=== PATIENT | male | born 1935 | race Caucasian/White ===

== ENCOUNTER 2021-06-09 18:03 | Inpatient (IN) | payer MEDICARE, SELFPAY ==
[2021-06-09] VITALS (15 sets, daily range): BP systolic 95–158; BP diastolic 45–66; PULSE 85–112; RESP 23–34; TEMP 37.4–38.4; O2SAT 94–99
--- NOTE | ~2021-06-09 | XR_ITS ---
XR chest 1V portable 06/09/2021 19:29 Indication: Shortness of breath Procedure: AP portable chest Comparison: Comparison to multiple prior studies sequentially, with oldest reviewed study dated 03/2011. Findings: Status post median sternotomy for CABG. Bibasilar airspace disease. No pleural effusion. No pneumothorax. No acute osseous abnormality. No pneumothorax. Impression: 1: Bibasilar airspace disease which may represent atelectasis or developing pneumonia. Reviewed, dictated and finalized at location A. Impression: 1: Bibasilar airspace disease which may represent atelectasis or developing pne umonia.
--- NOTE | ~2021-06-09 | XR_ITS ---
EXAMINATION: XR fl guide central line place EXAM DATE: 06/16/2021 14:41 INDICATION: Tunnel dialysis catheter placement. TECHNIQUE: Fluoroscopy used during XR fl guide central line place performed by Dr. Saurav Lopez MD. Radiologist was not present for the imaging or procedure. Total fluoroscopic time of 99 seconds . The DAP for this procedure was 0.54 mGym2. A total of 3 images sent to PACS from the exam. FINDINGS: Image demonstrates sternotomy wires, left-sided approach dialysis catheter, tip projecting over expected location of cavoatrial junction. Correlate with procedure note. IMPRESSION: Fluoroscopy used during dialysis catheter placement. Reviewed, dictated and finalized at location G.
--- NOTE | ~2021-06-09 | CT_ITS ---
EXAMINATION: CT abdomen pelvis wo con DATE: 06/09/2021 21:11 INDICATION: Abdomen pain. Vomiting. TECHNIQUE: Computed tomography (CT) of the abdomen and pelvis was performed without intravenous contr ast. The dose-length product was 579.15 mGy-cm. Automated exposure control and iterative reconstructi on technique were employed. COMPARISON: None. FINDINGS: Lung bases are unremarkable. Heart size is normal. There is extensive atherosclerosis of th e abdomen and pelvis. No aneurysm. Calcified granulomas of the liver and spleen. There are gallstones . The liver, spleen, adrenal glands and kidneys are unremarkable. There is a 3 cm cystic lesion of th e uncinate process of the pancreas. Nonobstructive bowel gas pattern. Bladder is moderately distended . Prostate gland is enlarged. No free air or free fluid. Moderate lumbar spondylosis. IMPRESSION: 1. 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 The differential diagnosis includes pseudocyst, intraductal papillary mucinous neoplasm (IPMN), mucinous cystic neoplasm (MCN), and the less common serous cystadenoma and neuroendocrine tumor. 2: Cholelithiasis. 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 Reviewed, dictated and finalized at location A. IMPRESSION: 1. 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 The different ial diagnosis includes pseudocyst, intraductal papillary mucinous neoplasm (IPM N), mucinous cystic neoplasm (MCN), and the less common serous cystadenoma and neuroendocrine tumor. 2: Cholelithiasis. 3: Extensive atherosclerosis with stenosis at the origin of the celiac axis, SM A and renal arteries.
--- NOTE | ~2021-06-09 | XR_ITS ---
XR chest port-a-cath/central DATE: 06/16/2021 15:32 INDICATION: Postoperative examination following tunneling placement of dialysis catheter TECHNIQUE: Portable AP chest on 06/16/2021 at 1531 hours COMPARISON: 06/15/2021 portable AP chest FINDINGS: Interval placement of left subclavian central venous line in superior vena cava, with tip n ear superior cavoatrial junction. No pneumothorax. There are bilateral lower lung zone infiltrates and/atelectasis, right greater than left, not signifi cantly changed since 06/15/2021. Heart size appears within normal range. Is aortic arch calcification. No hilar or mediastinal enlarge ment is evident. Diffuse osteopenia. IMPRESSION: Interval placement of left subclavian central venous line in superior vena cava near supe rior cavoatrial junction; no pneumothorax Reviewed, dictated and finalized at Location A. Reviewed, dictated and finalized at location B. IMPRESSION: Interval placement of left subclavian central venous line in superi or vena cava near superior cavoatrial junction; no pneumothorax
--- NOTE | ~2021-06-09 | US_ITS ---
EXAMINATION: US renal BI DATE: 06/13/2021 11:32 INDICATION: Acute renal insufficiency TECHNIQUE: Multiple ultrasound grayscale images of the kidneys were obtained. COMPARISON: None. FINDINGS: The right kidney measures 11.0 x 5.5 x 5.5 cm. The left kidney measures 1.7 x 6.1 x 5.1 cm. The kidne ys demonstrate normal echogenicity. 8 mm anechoic cyst in the left kidney. There is no hydronephrosis in either kidney. No stones identified. The bladder is decompressed around a Tamez catheter which l imits evaluation.. IMPRESSION: 1. 8 mm left renal cyst. Otherwise normal kidneys without hydronephrosis. Reviewed, dictated and finalized at location A.
--- NOTE | ~2021-06-09 | XR_ITS ---
EXAMINATION: XR chest 1V portable DATE: 06/15/2021 11:25 INDICATION: Congestive heart failure. TECHNIQUE: A single frontal view of the chest was obtained. COMPARISON: Chest single view 06/12/2021 FINDINGS: There is a small right pleural effusion. There are airspace opacities in the mid and lower lung zones. No pneumothorax. The heart size is normal. Median sternotomy wires and mediastinal surgic al clips are seen, likely from prior coronary artery bypass grafting. IMPRESSION: 1. Airspace opacities in the mid and lower lung zones with worsening on the left, consistent with ate lectasis versus pneumonia. 2. Stable small right pleural effusion. Reviewed, dictated and finalized at location A. IMPRESSION: 1. Airspace opacities in the mid and lower lung zones with worsening on the lef t, consistent with atelectasis versus pneumonia. 2. Stable small right pleural effusion.
--- NOTE | ~2021-06-09 | NM_ITS ---
EXAMINATION: NM hepatobiliary w pharm DATE: 06/13/2021 14:41 INDICATION: Nausea and vomiting. Cholelithiasis. COMPARISON: Ultrasound 06/10/2021 TECHNIQUE: 5.5 mCi Tc-99m mebrofenin (Choletec) was administered intravenously. Scintigraphic images of the abdomen were obtained for one hour. Then, 1.6 mcg sincalide (Kinevac) IV was administered, an d imaging was continued for 30 minutes. FINDINGS: There is normal clearance of radiotracer from the blood pool. There is homogeneous tracer u ptake by the liver. Activity progresses to the bowel and gallbladder. Gallbladder ejection fraction (GBEF) was 7%. Note that most patients with gallbladder dysfunction have GBEF < 35%, which overlaps w ith the broad normal range of 10-90%. IMPRESSION: 1. Low gallbladder ejection fraction, consistent with gallbladder dysfunction and/or chronic cholecy stitis. Reviewed, dictated and finalized at location A. IMPRESSION: 1. Low gallbladder ejection fraction, consistent with gallbladder dysfunction and/or chronic cholecystitis.
--- NOTE | ~2021-06-09 | XR_ITS ---
XR chest 1V portable DATE: 06/12/2021 13:11 INDICATION: Hypoxia TECHNIQUE: Portable AP chest on 06/12/2021 at 1311 hours COMPARISON: 06/19/2021 portable AP chest FINDINGS: There are increased bilateral mid and lower lung infiltrates and/atelectasis since 06/09/2021 , right greater than left. Small right pleural effusion is evident. There is interval prominence of the minor fissure which may indicate subpleural edema or fluid in the fissure. Heart size appears within normal range. Aortic arch calcification. Status post sternotomy/coronary artery bypass graft surgery. Diffuse osteopenia. IMPRESSION: Increased bilateral mid and lower lung infiltrate and/atelectasis, right greater than lef t, since 06/19/2021. Small right pleural effusion is suggested. Differential diagnosis includes pneumonia, pulmonary edema, atelectasis, aspiration. Reviewed, dictated and finalized at location B. IMPRESSION: Increased bilateral mid and lower lung infiltrate and/atelectasis, right greater than left, since 06/19/2021. Small right pleural effusion is suggested. Differential diagnosis includes pneumonia, pulmonary edema, atelectasis, aspira tion.
--- NOTE | ~2021-06-09 | US_ITS ---
EXAMINATION: US abdomen limited DATE: 06/10/2021 13:33 INDICATION: Cholelithiasis. TECHNIQUE: Multiple grayscale and Doppler ultrasound images of the abdomen were obtained. COMPARISON: CT abdomen and pelvis 06/19/2021 FINDINGS: The visualized portion of the body of the pancreas is normal. The liver is normal without f ocal lesion. No liver surface nodularity. There is normal flow in main portal vein. The gallbladder i s distended and contains gallstones. No gallbladder wall thickening or sonographic Lopez sign. The c ommon duct is normal and measures 3 mm. IMPRESSION: 1. Distended gallbladder with gallstones. No gallbladder wall thickening or sonographic Lopez sign t o suggest acute cholecystitis. Reviewed, dictated and finalized at location A. IMPRESSION: 1. Distended gallbladder with gallstones. No gallbladder wall thickening or son ographic Lopez sign to suggest acute cholecystitis.
[2021-06-09 18:15] LABS: Glucose Point of Care 149 mg/dl (65-105)
--- NOTE | 2021-06-09 18:36 | ECG_ITS ---
Measurements Intervals [place] Rate: 106 P: 39 MN: 206 QRS: -7 QRSD: 89 T: 71 QT: 314 QTc: 419 Interpretive Statements SINUS TACHYCARDIA POSSIBLE LEFT ATRIAL ENLARGEMENT CANNOT RULE OUT SEPTAL INFARCT, AGE INDETERMINATE CONSDIER INFERIOR INFARCT, AGE INDETERMINATE BORDERLINE ST-T WAVE ABNORMALITY- HIGH LATERAL LEADS BASELINE ARTIFACT- I, III, AVL, V1-V2, V4-V6 ABNORMAL ECG Electronically Signed On 06-09-2021 19:00:13 CDT by Toby Cantor D.O.
[2021-06-09 18:45] LABS: Basophils Percent Auto 0.1 % (0.2-1.2); Hematocrit 28.8 % (42.0-52.0); Hemoglobin 8.9 g/dL (14.0-18.0); Immature Granulocyte Absolute 0.14 K/mm3 (0.00-0.031); Lymphocytes Absolute Auto 0.17 K/mm3 (0.9-3.2); Lymphocytes Percent Auto 1.2 % (18.3-44.2); Mean Corpuscular HGB Conc 30.9 g/dl (32-36); Mean Corpuscular Hemoglobin 30.4 pg (26-34); Mean Corpuscular Volume 98.3 fl (80-100); Mean Platelet Volume 9.8 fl (7.4-10.4); Monocytes Absolute Auto 0.6 K/mm3 (0.1-0.6); Monocytes Percent Auto 3.8 % (2.6-8.5); Neutrophils Absolute Auto 13.7 K/mm3 (1.3-6.7); Neutrophils Percent Auto 93.9 % (45.5-73.1); Platelet Count Result 111 k/mm3 (150-375); Red Blood Count 2.93 M/mm3 (4.6-6.20); White Blood Count 14.6 K/mm3 (4.5-10.0)
[2021-06-09 18:48] LABS: Add Urine Microscopic? YES; Appearance Urine Clear (Clear); Bilirubin Urine Negative (Negative); Blood Urine Negative (Negative); Color Urine Straw (Yellow); Glucose Urine UA Negative (Negative); Ketones Urine Negative (Negative); Leukocyte Esterase Ur Negative LEU/UL (Negative); Nitrate Urine Negative (Negative); Protein Urine 2+ mg/dL (Negative); RBC Urine 0-2 /hpf (0-2); Specific Grav Ur 1.011 (1.001-1.035); Urobilinogen Urine Negative mg/dL (<2.0); WBC Urine 0-3 /hpf
[2021-06-09 18:55] LABS: Alanine Aminotransferase 18 U/L (4-50); Albumin Level 3.9 g/dL (3.5-5.1); Alkaline Phosphatase 52 U/L (38-126); Anion Gap 14 mmol/L (8-16); Aspartate Amino Transferase 18 U/L (17-59); Bilirubin,Total 0.4 mg/dL (0.2-1.3); Blood Urea Nitrogen 110 mg/dL (9-20); Calcium 9.1 mg/dL (8.4-10.2); Carbon Dioxide 17 mmol/L (22-30); Chloride 111 mmol/L (98-107); Estimated CRCL calculation 13 ml/min; Estimated Glomerular Filt Rate 16; Glucose 148 mg/dL (75-110); Lipase 175 U/L (23-300); Potassium 4.1 mmol/L (3.4-5.0); Sodium 142 mmol/L (137-145)
[2021-06-09 19:04] LABS: NT Pro B Type Natriuretic Pept 645 pg/mL (5-100)
--- NOTE | 2021-06-09 19:24 | ED.GENADULT ---
HPI - General Adult General Chief complaint: Shortness of Breath/Dyspnea Stated complaint: v/d Time Seen by Provider: 06/09/21 19:18 Source: RN notes reviewed History of Present Illness HPI narrative: Patient presents to emergency department from home for shortness of breath. Patient states symptoms began this morning. He notes shortness of breath with a cough this been nonproductive. He states associate with this has had numerous episodes of nausea and vomiting. States he did begin to have note a feeling of fever earlier this afternoon and had a fever upon presentation the ER states has had no Tylenol. States he has had both Covid vaccines receiving [place] vaccine with second dose in January he denies any chest pain abdominal pain diarrhea or any other symptoms Related Data Home Medications Medication Instructions Recorded Confirmed Glucosamine Chondroitin BID 06/09/21 Novolog Flexpen U-100 Insulin 06/09/21 Restasis 06/09/21 amlodipine 5 mg DAILY 06/09/21 apixaban [Eliquis] mg 06/09/21 aspirin 81 mg PO DAILY 06/09/21 atorvastatin 40 mg DAILY 06/09/21 bimatoprost [Lumigan] drp 06/09/21 carvedilol [Coreg] 25 mg BID 06/09/21 doxazosin 2 mg PO HS 06/09/21 furosemide 120 mg DAILY 06/09/21 insulin glargine [Lantus Solostar SUBCUT 06/09/21 U-100 Insulin] isosorbide mononitrate 30 mg PO DAILY 06/09/21 lisinopril 40 mg DAILY 06/09/21 krlhbgatowzb-nbzuzdti-bbgkiu tablet 06/09/21 [Centrum Silver] omega 0-ggs-chy-fish oil [Fish Oil] 1 cap PO TID 06/09/21 Allergies Allergy/AdvReac Type Severity Reaction Status Date / Time Sulfa (Sulfonamide Allergy Unknown Hives Verified 06/09/21 18:44 Antibiotics) Review of Systems Review of Systems: Narrative: Gen.: Reports fever Eyes: Denies eye pain or visual change ENT: Denies congestion Respiratory: Reports shortness of breath and cough CV: Denies chest pain GI: Reports nausea vomiting. Denies abdominal pain or diarrhea denies burning, urgency, frequency or hematuria Musculoskeletal: Denies back pain or muscle pain Neuro: Denies numbness, tingling, weakness or focal weakness Skin: Denies rash Except as documented, all other systems reviewed and negative [facility] Past Medical History Medical History (Updated 06/10/21 @ 01:22 by Alfonso Pozo DO) CHF (congestive heart failure) CKD (chronic kidney disease), stage IV Family History Family History (Updated 11/29/16 @ 14:24 by DOCTOR UNKNOWN) Father Family history of malignant neoplasm of bone Mother Family history of congestive heart failure Social History Social History Smoking status: Former smoker Second hand tobacco smoke exposure: No Smoking end date: 12/02/85 Alcohol intake: never Exam Narrative: Exam Narrative: APPEARANCE: Mild respiratory distress nontoxic, resting in bed EYES: EOMI HEENT: Normocephalic, atraumatic, OMM RESPIRATORY: Mild respiratory distress, wheezing throughout the bilateral lung solomon with decreased breath sounds in the bases CARDIOVASCULAR: Regular rate and rhythm without murmurs rubs or gallops. ABDOMINAL: Soft, nontender, nondistended, no rebound or guarding MUSCULOSKELETAl: Moves all extremities. No clubbing, cyanosis or edema. NEURO: Awake and alert. Following commands, speech normal, no focal deficits SKIN:: Warm, dry. No rashes lesions or abrasions PSYCHIATRIC: Normal affect/mood, Course Course Emergency Course: Patient states he is feeling much better at this time. States he has been taking his Eliquis as prescribed as well as a daily baby aspirin will give no further medication for elevated troponin at this time he has been taking his medications. 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 Burnett at [facility] Discussed with Dr. Flores after CT scan and he r
[2021-06-09 19:54] LABS: Lactic Acid Reflex 1.3 mmol/L (0.7-2.1)
[2021-06-09] MEDS: SODIUM CHLORIDE 0.9% IV 1,000 ML 999 ML IV CONT ×2 (19:54→22:10)
[2021-06-09 19:56] LABS: Alveolar/Arterial O2 Gradient 44.2 mmHg; Base Excess ABG -7.4 mEq/l (+/-2.0); Device ROOM AIR; Fractional Inspired Oxygen 21 %; HCO3 ABG 17.7 mEq/l (22.0-26.0); Oxygen Content ABG 13.1 %vol (16.0-22.0); Oxygen Saturation ABG 91.4 % (95.0-100.0); Oxyhemoglobin 91.1 % THb (90.0-100.0); PCO2 ABG 34.4 mmHg (35.0-45.0); PO2 ABG 64.3 mmHg (80.0-100.0); PO2 FiO2 Ratio Arterial Blood 3.06 %; Site Drawn RIGHT BRACHIAL; Total Hemoglobin 10.2 g/dL (12.0-18.0)
[2021-06-09] MEDS: ALBUTEROL SULFATE NEB 2.5 MG/0.5 ML INH 5 MG INHALATION (20:12)
[2021-06-09] MEDS: IPRATROPIUM BR 0.02% INH SOLN 0.5 MG/2.5 ML VIAL INHALATION (20:12)
[2021-06-09 20:13] LABS: NT Pro B Type Natriuretic Pept 845 pg/mL (5-100); Troponin I 0.149 ng/mL (0.000-0.034)
[2021-06-09 22:42] LABS: INR 1.4; Prothrombin Time 16.8 Seconds (11.1-14.7)
[2021-06-09 22:44] LABS: Partial Thromboplastin Time 30.6 SECONDS (22.3-36.8)
--- NOTE | 2021-06-09 23:16 | ECG_ITS ---
Measurements Intervals [place] Rate: 88 P: 11 TN: 200 QRS: -11 QRSD: 97 T: 31 QT: 345 QTc: 418 Interpretive Statements SINUS RHYTHM CANNOT RULE OUT SEPTAL INFARCT, AGE INDETERMINATE CONSIDER INFERIOR INFARCT, AGE INDETERMINATE BASELINE ARTIFACT- I, II, III, AVR, AVL, AVF, V3-V6 ABNORMAL ECG Electronically Signed On 06-10-2021 6:46:42 CDT by Toby Cantor D.O.
[2021-06-10] VITALS (27 sets, daily range): BP systolic 104–154; BP diastolic 49–82; PULSE 68–114; RESP 14–27; TEMP 36.3–37.7; O2SAT 93–100; BMI 27.1
--- NOTE | 2021-06-10 01:00 | ADMGEN ---
This patient, Nolan Bower, was admitted to IMU Room 231-01. Patient/family oriented to hospital policies and general routines including ID bracelet, bed and alarms, visiting hours, pain management, procedures, bathroom and other care routines, personal items, smoking policy, room service/diet, and visiting hours. Information on how to activate the Rapid Response Team has been discussed. Patient/Family are encouraged to report perceived risks to care and to ask questions if they do not understand what they are told or what they should do.
[2021-06-10] MEDS: ALBUTEROL SULFATE NEB 2.5 MG/0.5 ML INH 5 MG INHALATION ×4 (02:23→19:57)
[2021-06-10] MEDS: IPRATROPIUM BR 0.02% INH SOLN 0.5 MG/2.5 ML VIAL INHALATION ×4 (02:24→19:58)
[2021-06-10] MEDS: SODIUM CHLORIDE 0.9% IV 1,000 ML 100 ML IV CONT ×2 (02:34→09:58)
[2021-06-10 02:41] LABS: Troponin I 0.301 ng/mL (0.000-0.034)
[2021-06-10 05:08] LABS: Basophils Percent Auto 0.1 % (0.2-1.2); Hematocrit 28.1 % (42.0-52.0); Hemoglobin 8.9 g/dL (14.0-18.0); Immature Granulocyte Absolute 0.46 K/mm3 (0.00-0.031); Immature Granulocyte Percent A 2.7 % (0-0.5); Lymphocytes Absolute Auto 0.25 K/mm3 (0.9-3.2); Lymphocytes Percent Auto 1.5 % (18.3-44.2); Mean Corpuscular HGB Conc 31.7 g/dl (32-36); Mean Corpuscular Hemoglobin 30.9 pg (26-34); Mean Corpuscular Volume 97.6 fl (80-100); Mean Platelet Volume 9.8 fl (7.4-10.4); Monocytes Absolute Auto 0.5 K/mm3 (0.1-0.6); Monocytes Percent Auto 3.1 % (2.6-8.5); Neutrophils Absolute Auto 15.6 K/mm3 (1.3-6.7); Neutrophils Percent Auto 92.6 % (45.5-73.1); Platelet Count Result 105 k/mm3 (150-375); Red Blood Count 2.88 M/mm3 (4.6-6.20); Red Cell Distribution Width 13.1 % (11.5-14.5); White Blood Count 16.9 K/mm3 (4.5-10.0)
[2021-06-10 05:30] LABS: Alanine Aminotransferase 23 U/L (4-50); Albumin Level 3.5 g/dL (3.5-5.1); Alkaline Phosphatase 49 U/L (38-126); Anion Gap 12 mmol/L (8-16); Aspartate Amino Transferase 26 U/L (17-59); Bilirubin,Total 0.4 mg/dL (0.2-1.3); Blood Urea Nitrogen 101 mg/dL (9-20); Calcium 8.7 mg/dL (8.4-10.2); Carbon Dioxide 19 mmol/L (22-30); Chloride 114 mmol/L (98-107); Estimated CRCL calculation 14 ml/min; Estimated Glomerular Filt Rate 17; Glucose 126 mg/dL (75-110); Potassium 4.6 mmol/L (3.4-5.0); Sodium 145 mmol/L (137-145)
--- NOTE | 2021-06-10 09:57 | PM.IMHP ---
H&P: HPI History of Present Illness Date/Time: 06/10/21 09:57 Chief Complaint: Vomiting, fever Narrative: date of admission: 06/09/2021 date of service 17/09/2021 Nolan Bower is an 86-year-old male with a history of CHF, CKD, CAD, valvular disease, CVA, diabetes mellitus, hypertension, hyperlipidemia, and several other comorbidities who presented to the emergency department from home on 06/09/2021 due to complaints of vomiting. Yesterday morning, he had a breakfast consisting of eggs and sausage, and shortly thereafter began vomiting. He estimates at least 5 episodes of emesis and he was not able to keep down any foods or liquids. Later that evening, he became short of breath and still was not able to eat or drink, therefore he decided to seek emergency care. He was found to have a fever upon presentation but he is unsure if he has had any fevers at home. He felt that he was becoming weaker throughout the day without being able to eat. Upon presentation to the emergency department, he was febrile at 101.1?, he was tachycardic and tachypneic. he was not documented to have been hypoxic, however he is currently on 2 L supplemental O2. CBC reviewed with WBC elevated at 14.6, hemoglobin 8.9, hematocrit 20.1, platelets 111. CMP reviewed with elevated BUN and creatinine, normal total bili, AST, ALT, and ALP. Lipase 175. BNP 645. Lipase 1.3. Troponin 0.149. UA without concerns for infection. Influenza screen negative. CXR with bibasilar airspace disease and CT a/p with incidental finding of pancreatic cystic mass, cholelithiasis, and atherosclerosis of the celiac axis, SMA, and renal arteries. Upon my evaluation, he is feeling well and doesn't have many complaints. He denies shortness of breath, though he is tachypneic. He notes that he has been having more shallow breathing for 6 months to 1 year. He relates this to his valvular disease (cannot elaborate on this further) and he is established with cardiology at [place]. He does not wish to undergo valve repair. He has not had any further nausea or vomiting and tolerated clear liquids for breakfast this morning. He denies abdominal pain. He is being admitted to the hospitalist service for observation status. Supervising physician for this history and physical is Dr. Mary Ann Smith. Review of Systems Review of Systems: Narrative: All systems reviewed with pertinent positives and negatives as per HPI. Additionally, patient denies fevers or chills. He had not been checking his temperature at home. Denies cough. Does endorse orthopnea which has been ongoing for some time. Denies chest pain or palpitations. Endorses lower extremity edema and he does have bilateral lower extremities. He has wounds on both legs from vascular disease. He is established with a vascular surgeon, and again has opted for conservative management. He has been consistently taking his Eliquis and denies any issues with bleeding. No melena, hematochezia, hematuria. Denies dysuria. Prior to his episode of emesis, he had been in his usual state of health and eating well. He estimates he has lost approximately 10 lb over the course of the year. He reports occasional GERD. Does not notice abdominal pain related to meals. He reports poor vision and no longer drives. Also notes his hearing is poor but does not have hearing aids. He completed [employer] COVID vaccination series in January. He has not had COVID positive contacts and has not traveled. He indicates that he mostly stays at home. He has not had loss of smell. Notes diminished taste, but feels this has been ongoing for about a year. He is able to ambulate independently but feels weak currently. No dizziness/lightheadedness upon standing. No numbness/tingling in extremities. [facility] Past Medical History Medical History (Updated 06/10/21 @ 12:17 by Tanesha Graham PA-C) Arrhythmia Details unknown; s/p cardioversion years ago CAD (coronary artery disease) CHF (congestive h
[2021-06-10 10:25] LABS: Magnesium 1.6 mg/dL (1.6-2.3)
[2021-06-10 12:23] LABS: Glucose Point of Care 191 mg/dl (65-105)
--- NOTE | 2021-06-10 15:05 | PM.CNCAR ---
Assessment and Plan Assessment and plan (1) Non-STEMI (non-ST elevated myocardial infarction): Code(s): I21.4 - Non-ST elevation (NSTEMI) myocardial infarction Status: Acute Assessment and Plan: his elevated troponin represents non ST-elevation myocardial infarction. It is uncertain if this related to plaque rupture or secondary to supply demand mismatch demand ischemia in the setting of bacteremia, anemia and underlying CAD. Unfortunately at this point, no anticoagulation should be given because of his bloody stools. Will hold his apixaban for the time being. Continue low-dose aspirin 81 mg p.o. daily for now. Atorvastatin should be continued as well as his isosorbide, lisinopril, carvedilol. 2D echocardiogram Doppler will be ordered and reviewed. I have discussed with patient again about his code status and he emphasizes DNR status. Will pursue conservative management for now (2) Elevated troponin: Code(s): R77.8 - Other specified abnormalities of plasma proteins Status: Acute Assessment and Plan: as above (3) Paroxysmal atrial flutter: Code(s): I48.92 - Unspecified atrial flutter Status: Acute Assessment and Plan: status post cardioversion remotely. On anticoagulation previously. Hold Eliquis (4) (HFpEF) heart failure with preserved ejection fraction: Code(s): I50.30 - Unspecified diastolic (congestive) heart failure Status: Acute Assessment and Plan: history of CHF with preserved ejection fraction. I do think he is in some degree of volume overload at this point as he is quite dyspneic. Other concern though is that he is in acute on chronic renal failure. Will try to diurese him with 40 mg of IV furosemide x1 to see if this will help his respiratory status. 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 Patient is also bacteremic with fevers. Antibiotics to be started per hospitalist. workup pending. ? Ischemic bowel History of Present Illness History of Present Illness Consult date/time: 06/10/21 15:05 Requesting physician: Tanesha Graham PA-C Consult reason: Other ( elevated troponin, CAD) Reason For Visit: Fever of Unknown Origin,Elevated Troponin,Acute Re Narrative: date of service 06/10/2021 Reason for consultation positive troponin, CAD History: Patient is a 86-year-old man who follows with Dr. Ulloa at [place]. He has a remote history of CABG in 2004 as well as atrial flutter and heart failure with preserved ejection fraction. Echocardiogram 2020 did show some mild mitral and tricuspid regurgitation as well as some aortic valve sclerosis and calcification. He also has significant peripheral vascular disease including celiac arteries, lower extremities, carotids as well as claudication. He came to the hospital yesterday with symptoms of nausea and vomiting. He ate some eggs and sausage yesterday and soon thereafter became sick and started vomiting. He had several episodes of vomitus. He came to the emergency department is also febrile with a temperature of 101.1?. Troponins were drawn which were minimally elevated and have slowly and gradually risen to a level 3.3 at
[2021-06-10 15:31] LABS: Lactic Acid Reflex 2.6 mmol/L (0.7-2.1)
[2021-06-10] MEDS: guaiFENesin 12 HR 600 MG TABCR PO ×2 (15:34→21:34)
[2021-06-10] MEDS: FUROSEMIDE INJ 40 MG/4 ML VIAL IV PUSH (15:34)
[2021-06-10 16:38] LABS: Hematocrit 28.1 % (42.0-52.0); Hemoglobin 8.9 g/dL (14.0-18.0)
[2021-06-10 17:17] LABS: Glucose Point of Care 198 mg/dl (65-105)
--- NOTE | 2021-06-10 18:12 | PM.CNGS ---
Assessment and Plan Assessment and plan (1) Bright red blood per rectum: Code(s): K62.5 - Hemorrhage of anus and rectum Status: Acute Assessment and Plan: I have reviewed the CT. He has many risk factors for acute mesenteric ischemia, but he does not present in this fashion. He is not having any abdominal pain, and his blood in his stool was most like related to hemorrhoids or an upper GI bleed. He does appear dehydrated from the nausea and vomiting, and his BUN could also be elevated partially due to an upper GI bleed. I feel that fluid resuscitation would be more prudent in this case and then also consider GI evaluation for identifying source GI bleed. His bacteremia could be related to bowel or possible gallbladder source. If his white blood count is continuing to remain elevated, would consider HIDA scan to assess for acute cholecystitis. Given his multiple comorbidities he would not be a good surgical candidate. Consideration of percutaneous cholecystostomy tube if bacteremic sources deemed to be gallbladder in origin. If he is in need of urgent surgical intervention for ischemic bowel, he would have very high mortality risk associated with this. I will continue to follow along with the patient and reassess if he is having new symptoms of abdominal pain. (2) Chronic anticoagulation: Code(s): Z79.01 - [facility] (current) use of anticoagulants Status: Acute (3) Cholelithiasis: Code(s): K80.20 - Calculus of gallbladder without cholecystitis without obstruction Status: Acute (4) Sepsis: Code(s): A41.9 - Sepsis, unspecified organism Status: Acute (5) Non-STEMI (non-ST elevated myocardial infarction): Code(s): I21.4 - Non-ST elevation (NSTEMI) myocardial infarction Status: Acute History of Present Illness Consult details Consult date: 06/10/21 Reason for consult: other (Possible ischemic colitis) Requesting physician: Tanesha Graham PA-C Narrative: this is an 86-year-old man who I am asked to see for possible ischemic colitis. He presented to the emergency department yesterday with nausea and vomiting. He was also complaining of shortness of breath. He has multiple risk factors and comorbidities including history of CVA, coronary artery disease, CHF, and he is on long-term anticoagulation. He has not been complaining of abdominal pain. A CT of his abdomen and pelvis showed a pancreatic cystic mass, cholelithiasis, and severe atherosclerosis of celiac, SMA, and renal arteries. today he was noted to have a large bloody bowel movement. The patient does state that he has history of hemorrhoids, he has not noticed any blood mixed with stool previously. He denied any hematemesis with any of his nausea and vomiting. Review of Systems Review of Systems: All systems reviewed & are unremarkable except as noted in HPI and below Constitutional: Constitutional: Denies chills and Denies fever(s) Cardiovascular: Cardiovascular: Denies chest pain and Denies dyspnea Respiratory: Respiratory: Denies dyspnea Gastrointestinal: Gastrointestinal: Reports as per HPI [facility] Past Medical History Medical History (HFpEF) heart failure with preserved ejection fraction Arrhythmia Details unknown; s/p cardioversion years ago CAD (coronary artery disease) CHF (congestive heart failure) CKD (chronic kidney disease), stage IV Glaucoma History of CVA (cerebrovascular accident) Hyperlipidemia Hypertension Type 2 diabetes mellitus Valvular heart disease Surgical History Surgical History History of cataract surgery History of coronary artery bypass graft 2004 History of right knee surgery Family History Family History Father Family history of malignant neoplasm of bone Lung cancer Mother Family history
[2021-06-10 18:20] LABS: Reflex Lactic Acid Yes or No Add Lactic
[2021-06-10] MEDS: BRIMONIDINE TARTRATE 0.15% 5 ML OPHTH SOLN 1 DROP LEFT EYE (18:38)
[2021-06-10] MEDS: cilostazoL 100 MG TABLET PO (18:38)
[2021-06-10 20:05] LABS: Lactic Acid 1.8 mmol/L (0.7-2.1)
[2021-06-10 21:20] LABS: SARS-CoV-2 RNA PCR Negative
[2021-06-10] MEDS: carvediloL 25 MG TABLET PO (21:33)
[2021-06-10] MEDS: DOXAZOSIN MESYLATE 2 MG TABLET PO (21:34)
[2021-06-10] MEDS: cycloSPORINE 0.4 ML OPHTH SOLUTION 1 DROP EACH EYE (21:34)
[2021-06-10] MEDS: INSULIN GLARGINE (*BKC) 100 UNITS/ML 18 UNITS SUB-Q (21:38)
[2021-06-10 21:47] LABS: Glucose Point of Care 159 mg/dl (65-105)
[2021-06-11] VITALS (23 sets, daily range): BP systolic 90–130; BP diastolic 55–78; PULSE 86–118; RESP 17–28; TEMP 36.4–36.9; O2SAT 89–94
[2021-06-11] MEDS: SODIUM CHLORIDE 0.9% IV 1,000 ML 100 ML IV CONT (00:48)
[2021-06-11] MEDS: ACETAMINOPHEN 500 MG TABLET 1000 MG PO ×2 (01:50→11:23)
[2021-06-11] MEDS: ALBUTEROL SULFATE NEB 2.5 MG/0.5 ML INH 5 MG INHALATION ×4 (02:22→20:49)
[2021-06-11] MEDS: IPRATROPIUM BR 0.02% INH SOLN 0.5 MG/2.5 ML VIAL INHALATION ×4 (02:22→20:49)
[2021-06-11 05:19] LABS: Hematocrit 28.2 % (42.0-52.0); Hemoglobin 8.8 g/dL (14.0-18.0); Immature Platelet Fraction Pct 1.7 % (0.9-11.2); Mean Corpuscular HGB Conc 31.2 g/dl (32-36); Mean Corpuscular Hemoglobin 30.4 pg (26-34); Mean Corpuscular Volume 97.6 fl (80-100); Mean Platelet Volume 9.7 fl (7.4-10.4); Platelet Count Result 82 k/mm3 (150-375); Red Blood Count 2.89 M/mm3 (4.6-6.20); Red Cell Distribution Width 13.2 % (11.5-14.5); White Blood Count 12.6 K/mm3 (4.5-10.0)
[2021-06-11 05:43] LABS: Alanine Aminotransferase 50 U/L (4-50); Albumin Level 2.8 g/dL (3.5-5.1); Alkaline Phosphatase 61 U/L (38-126); Anion Gap 13 mmol/L (8-16); Aspartate Amino Transferase 54 U/L (17-59); Bilirubin,Total 0.5 mg/dL (0.2-1.3); Blood Urea Nitrogen 91 mg/dL (9-20); Calcium 8.7 mg/dL (8.4-10.2); Carbon Dioxide 16 mmol/L (22-30); Chloride 112 mmol/L (98-107); Estimated CRCL calculation 16 ml/min; Estimated Glomerular Filt Rate 19; Glucose 129 mg/dL (75-110); Potassium 3.9 mmol/L (3.4-5.0); Sodium 141 mmol/L (137-145)
[2021-06-11 05:51] LABS: Hemoglobin A1C 5.9 % (<5.7)
[2021-06-11 06:54] LABS: Band Neutrophils Percent 10 % (0-6); Lymphocytes Absolute Manual 0.75 K/mm3 (1.1-4.5); Neutrophils Absolute Manual 11.84 K/mm3 (1.3-6.7); Neutrophils Percent Manual 84 % (46-73); Platelet Estimate Decreased (Adequate); Total Cells Counted 100
[2021-06-11 06:55] LABS: Burr Cells 1+ (NORMAL); Large Platelets Present; Ovalocytes 1+ (NORMAL)
[2021-06-11 06:59] LABS: Folic Acid > 20.0 ng/mL (2.76->20)
[2021-06-11] MEDS: guaiFENesin 12 HR 600 MG TABCR PO ×2 (08:53→21:57)
[2021-06-11] MEDS: ISOSORBIDE MONONITRATE 30 MG TAB.ER.24H PO (08:53)
[2021-06-11] MEDS: cilostazoL 100 MG TABLET PO ×2 (08:53→17:07)
[2021-06-11] MEDS: amLODIPine BESYLATE 5 MG TABLET PO (08:54)
[2021-06-11] MEDS: ATORVASTATIN 40 MG TABLET PO (08:54)
[2021-06-11] MEDS: ASPIRIN 81 MG CHEWABLE TABLET PO (08:54)
[2021-06-11] MEDS: FINASTERIDE 5 MG TABLET PO (08:55)
[2021-06-11] MEDS: carvediloL 25 MG TABLET PO ×2 (08:56→21:56)
[2021-06-11] MEDS: BRIMONIDINE TARTRATE 0.15% 5 ML OPHTH SOLN 1 DROP LEFT EYE ×2 (08:56→17:05)
[2021-06-11] MEDS: cycloSPORINE 0.4 ML OPHTH SOLUTION 1 DROP EACH EYE ×2 (08:57→21:56)
--- NOTE | 2021-06-11 09:25 | P.PNIM_ITS ---
Progress Note: A&P Assessment and Plan (1) Septicemia: Code(s): A41.9 - Sepsis, unspecified organism Status: Acute Assessment and Plan: Septic upon presentation with leukocytosis, fever, tachypnea, and tachycardia. Source of infection unclear at this time. * Preliminary blood cultures with growth of Gram-negative bacilli * Continue Zosyn 2.25 g q8 for renal dosing DAY 2 * U/S GB w/ GALLSTONES BUT NO SIGNS OF ACUTE CHOLECYSTITIS * Source of GNR remains unclear, but GI tract remains likely * 06/11 clear liquids and advance (2) Elevated troponin: Code(s): R77.8 - Other specified abnormalities of plasma proteins Status: Acute Assessment and Plan: troponin elevated upon presentation at 0.149 with continued increase up to 3.35. . * NSTEMI * On ASA 81mg, off anticoagulation * Echo pending (3) Cholelithiasis: Code(s): K80.20 - Calculus of gallbladder without cholecystitis without obstruction Status: Acute Assessment and Plan: Evident on CT scan with associated nausea and vomiting. total bili LFTs within normal limits. * RUQ U/s with gallstones but no sign of acute cholecystitis * HIDA for 06/12 (4) Acute on chronic kidney failure: Code(s): N17.9 - Acute kidney failure, unspecified; N18.9 - Chronic kidney disease, unspecified Status: Acute Assessment and Plan: last labs were January 2020 with creatinine of 2.09. Creatinine was 3.7 at presentation. Unclear if this is acute change or progression of his severe CKD. He is established with research aide Dr. Burnett at [facility] but has not been since prior to the pandemic. * Creatinine 3.1 06/11 * Decrease IVF (5) Type 2 diabetes mellitus, controlled, with renal complications: Code(s): E11.29 - Type 2 diabetes mellitus with other diabetic kidney complication Status: Acute Assessment and Plan: reports last A1c was 6.2. 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 + BC w/ GNR. Atherosclerosis on abd CT. Neg lactate. Neg U/s abd. Dark blood in stool 06/10. 06/11: Achy. Denied nausea. Denied further bleeding. Chronic wheezing and sob. Denied chest pain. Chronic left side weakness and left hand/wrist discomfort since stroke. Review of Systems Review of Systems: All systems reviewed & are unremarkable except as noted in HPI and below Exam Narrative: Exam Narrative: Neuro: awake, alert and oriented x4, speech clear, 4/5 LUE STRENGTH VS RIGHT HEENMT: normocephalic, atraumatic, EOMI, sclerae anicteric, moist oral mucosa, tongue has dark film Neck: supple, no lymphadenopathy Respiratory: BILATERAL LL EXPIRATORY WHEEZES. He is able to speak in full sentences. Cardio: regular rate, regular rhythm with S1-S2 Abdomen: nondis
--- NOTE | 2021-06-11 09:25 | PM.IMPN ---
Progress Note: A&P Assessment and Plan (1) Septicemia: Code(s): A41.9 - Sepsis, unspecified organism Status: Acute Assessment and Plan: Septic upon presentation with leukocytosis, fever, tachypnea, and tachycardia. Source of infection unclear at this time. Preliminary blood cultures with growth of Gram-negative bacilli Continue Zosyn 2.25 g q8 for renal dosing DAY 2 U/S GB w/ GALLSTONES BUT NO SIGNS OF ACUTE CHOLECYSTITIS Source of GNR remains unclear, but GI tract remains likely 06/11 clear liquids and advance (2) Elevated troponin: Code(s): R77.8 - Other specified abnormalities of plasma proteins Status: Acute Assessment and Plan: troponin elevated upon presentation at 0.149 with continued increase up to 3.35. . NSTEMI On ASA 81mg, off anticoagulation Echo pending (3) Cholelithiasis: Code(s): K80.20 - Calculus of gallbladder without cholecystitis without obstruction Status: Acute Assessment and Plan: Evident on CT scan with associated nausea and vomiting. total bili LFTs within normal limits. RUQ U/s with gallstones but no sign of acute cholecystitis HIDA for 06/12 (4) Acute on chronic kidney failure: Code(s): N17.9 - Acute kidney failure, unspecified; N18.9 - Chronic kidney disease, unspecified Status: Acute Assessment and Plan: last labs were January 2020 with creatinine of 2.09. Creatinine was 3.7 at presentation. Unclear if this is acute change or progression of his severe CKD. He is established with refresh technician Dr. Burnett at [facility] but has not been since prior to the pandemic. Creatinine 3.1 06/11 Decrease IVF (5) Type 2 diabetes mellitus, controlled, with renal complications: Code(s): E11.29 - Type 2 diabetes mellitus with other diabetic kidney complication Status: Acute Assessment and Plan: reports last A1c was 6.2. 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 + BC w/ GNR. Atherosclerosis on abd CT. Neg lactate. Neg U/s abd. Dark blood in stool 06/10. 06/11: Achy. Denied nausea. Denied further bleeding. Chronic wheezing and sob. Denied chest pain. Chronic left side weakness and left hand/wrist discomfort since stroke. Review of Systems Review of Systems: All systems reviewed & are unremarkable except as noted in HPI and below Exam Narrative: Exam Narrative: Neuro: awake, alert and oriented x4, speech clear, 4/5 LUE STRENGTH VS RIGHT HEENMT: normocephalic, atraumatic, EOMI, sclerae anicteric, moist oral mucosa, tongue has dark film Neck: supple, no lymphadenopathy Respiratory: BILATERAL LL EXPIRATORY WHEEZES. He is able to speak in full sentences. Cardio: regular rate, regular rhythm with S1-S2 Abdomen: nondistended, normoactive bowel sounds, soft, nontender to palpation, no rigidity or guarding Extremities: no edema, erythema, cyanosis, clubbing, or tenderness to palpation, DP pulses 2+ bilaterally Skin: no rashes or lesions, warm and dry Psych: appropriate mood and affect Objective Data Vital Signs Vital Signs: Vital Signs - 24 hr 06/10/21 10:00 06/10/21 11:46 06/10/21 12:00 Temperature 100 F H Pulse Rate 102 H 103 H 105 H Respiratory Rate 20 Blood Pressure 115/61 Pulse Oximetry 98 96 07
[2021-06-11 09:26] LABS: Glucose Point of Care 125 mg/dl (65-105)
--- NOTE | 2021-06-11 10:40 | PM.PNCARD ---
Progress Note: A&P Assessment and Plan (1) Non-STEMI (non-ST elevated myocardial infarction): Code(s): I21.4 - Non-ST elevation (NSTEMI) myocardial infarction Status: Acute Assessment and Plan: his elevated troponin represents non ST-elevation myocardial infarction. It is uncertain if this related to plaque rupture or secondary to supply demand mismatch demand ischemia in the setting of bacteremia, anemia and underlying CAD. Unfortunately at this point, no anticoagulation should be given because of his bloody stools. Will hold his apixaban for the time being. Continue low-dose aspirin 81 mg p.o. daily for now. Atorvastatin should be continued as well as his isosorbide, lisinopril, carvedilol. echo pending. Continue conservative therapy. (2) Elevated troponin: Code(s): R77.8 - Other specified abnormalities of plasma proteins Status: Acute Assessment and Plan: as above (3) Paroxysmal atrial flutter: Code(s): I48.92 - Unspecified atrial flutter Status: Acute Assessment and Plan: status post cardioversion remotely. On anticoagulation previously. Hold Eliquis (4) (HFpEF) heart failure with preserved ejection fraction: Code(s): I50.30 - Unspecified diastolic (congestive) heart failure Status: Acute Assessment and Plan: history of CHF with preserved ejection fraction. I do think he is in some degree of volume overload at this point as he is quite dyspneic. additional dose furosemide 40 mg IV times 1 today (5) Hypertension associated with diabetes: Code(s): E11.59 - Type 2 diabetes mellitus with other circulatory complications; I15.2 - Hypertension secondary to endocrine disorders Status: Acute Assessment and Plan: above goal (6) CKD (chronic kidney disease), stage IV: Code(s): N18.4 - Chronic kidney disease, stage 4 (severe) Status: Acute Assessment and Plan: renal function improving (7) Chronic anticoagulation: Code(s): Z79.01 - [facility] (current) use of anticoagulants Status: Acute Assessment and Plan: Will continue to hold anticoagulation for now. Will need this resumed at some point as an inpatient pending GI workup and if there is a need for surgery (8) Bright red blood per rectum: Code(s): K62.5 - Hemorrhage of anus and rectum Status: Acute Assessment and Plan: workup per hospitalist. Patient is also bacteremic with fevers. Antibiotics to be started per hospitalist. Subjective Date/time seen: 06/11/21 10:40 Interval history: Admitted 06/10 with n/v. + BC w/ GNR. Atherosclerosis on abd CT. Neg lactate. Neg U/s abd. Dark blood in stool 06/10. date of service 06/11/2021: He states that he feels better today. Breathing easier after the IV Lasix a give yesterday. No nausea, vomiting. No more bright red blood per rectum. No chest pain or palpitations. Review of Systems Review of Systems: All systems reviewed & are unremarkable except as noted in HPI and below Constitutional: Constitutional: Denies body ache(s), Denies chills, Denies fatigue and Denies headache(s) Eyes: Eyes: Denies blurry vision ENT: Reports Normal hearing present, Denies headache(s) and Denies neck pain Cardiovascular: Cardiovascular: Denies chest pain and Reports dyspnea Respiratory: Respiratory: Reports dyspnea Gastrointestinal: Gastrointestinal: Denies abdominal pain, Reports hematochezia, Reports nausea and Reports vomiting Genitourinary: Genitourinary: Denies dysuria Musculoskeletal: Musculoskeletal: Denies back pain and Denies neck pain Integumentary/Breasts: Skin/Breast: Denies dry skin and Denies unusual bruising Neurologic: Reports Normal hearing present, Denies confusion and Denies headache(s) Psychiatric: Psychiatric: Denies anxiety and Denies confusion Endocrine: Endocrine: Denies fatigue Hematologic/Lymphatic: Hematologic/Lymphatic: Denies easy blee
[2021-06-11 10:44] LABS: Iron < 10 ug/dL (49-181)
[2021-06-11 10:45] LABS: Percent Iron Saturation < 5 % (20-50)
[2021-06-11] MEDS: SODIUM CHLORIDE 0.9% IV 1,000 ML 70 ML IV CONT (11:21)
[2021-06-11] MEDS: FUROSEMIDE INJ 40 MG/4 ML VIAL IV PUSH (11:21)
[2021-06-11 12:04] LABS: Glucose Point of Care 210 mg/dl (65-105)
--- NOTE | 2021-06-11 12:53 | PM.PNGS ---
Progress Note: A&P Assessment and Plan (1) Sepsis: Code(s): A41.9 - Sepsis, unspecified organism Status: Acute Assessment and Plan: Bacteremic source could be GI in origin. Would favor gallbladder over bowel given his symptoms. N/V did start after eating eggs and pork sausage. Clinically he is improving and he remains a high risk for surgical intervention. If he has any recurrent symptoms, then I would recommend a HIDA scan for further evaluation and then could consider percutaneous cholecystostomy tube if he had evidence of acute cholecystitis. Since he is otherwise doing well, will follow as needed. (2) Abnormal finding on CT scan: Code(s): R93.89 - Abnormal findings on diagnostic imaging of other specified body structures Status: Acute (3) Cholelithiasis: Code(s): K80.20 - Calculus of gallbladder without cholecystitis without obstruction Status: Acute (4) Acute on chronic kidney failure: Code(s): N17.9 - Acute kidney failure, unspecified; N18.9 - Chronic kidney disease, unspecified Status: Acute (5) Non-STEMI (non-ST elevated myocardial infarction): Code(s): I21.4 - Non-ST elevation (NSTEMI) myocardial infarction Status: Acute (6) Bright red blood per rectum: Code(s): K62.5 - Hemorrhage of anus and rectum Status: Acute Subjective Subjective Date/Time Seen: 06/11/21 12:53 Interval history: No abdominal pain. No more nausea or vomiting. Blood in stool has subsided. Exam GI: Inspection: non-distended GI Palp: Yes Soft to palpation, No Tenderness to palpation present (GI), No Guarding due to palpation present (GI) and No Rebound tenderness present Percussion: Yes normal to percussion Auscultation: normal bowel sounds Objective Data Vital Signs Vital Signs: Vital Signs - 24 hr 06/10/21 13:37 06/10/21 13:50 06/10/21 14:00 Temperature Pulse Rate 105 H 105 H 94 Respiratory Rate 24 H 24 H Blood Pressure Pulse Oximetry 06/10/21 16:00 06/10/21 18:00 06/10/21 19:55 Temperature 37.4 C Pulse Rate 94 108 H 91 Respiratory Rate 22 H 22 H Blood Pressure 133/69 Pulse Oximetry 97 97 06/10/21 20:00 06/10/21 20:08 06/10/21 20:16 Temperature 36.3 C L Pulse Rate 93 90 Respiratory Rate 22 H 22 H Blood Pressure 138/82 Pulse Oximetry 93 94 06/10/21 21:33 06/10/21 22:00 06/11/21 00:00 Temperature 36.7 C Pulse Rate 100 100 93 Respiratory Rate 24 H Blood Pressure 121/71 Pulse Oximetry 93 06/11/21 02:00 06/11/21 02:23 06/11/21 02:30 Temperature Pulse Rate 96 92 86 Respiratory Rate 24 H 24 H Blood Pressure Pulse Oximetry 06/11/21 04:00 06/11/21 06:00 06/11/21 07:53 Temperature 36.8 C 36.9 C Pulse Rate 95 100 94 Respiratory Rate 22 H 17 Blood Pressure 130/78 123/63 Pulse Oximetry 93 93 06/11/21 08:00 06/11/21 08:43 06/11/21 08:54 Temperature Pulse Rate 96 97 95 Respiratory Rate 24 H 24 H 24 H Blood Pressure Pulse Oximetry 94 94 94 06/11/21 08:56 06/11/21 10:00 06/11/21 12:00 Temperature 36.8 C Pulse Rate 96 97 96 Respiratory Rate 20 Blood Pressure 104/55 L Pulse Oximetry 94 Intake/Output Intake/Output: Intake & Output 06/08/21 06/09/21 06/10/21 06/11/21 23:59 23:59 23:59 23:59 Intake Total 2100 3350 800 Output Total 300 1340 600 Balance 1800 2009 200 Meds/Results Medications: Active Medications Generic Name Dose Route Start Last Admin Trade Name Georges PRN Reason Stop Dose Admin Acetaminophen 1,000 mg 06/11/21 01:36 06/11/21 11:23 Acetaminophen 500 Mg Tablet PO 1,000 mg Q6H PRN Administration Mild Pain (1-3) or Fever Albuterol 5 mg 06/10/21 02:00 06/11/21 08:42 Albuterol Sulfate Neb 2.5 Mg/0.5 Ml Inh INHALATION 5 mg Q6HRT JULIA Administration Amlodipine Besylate 5 mg 06/11/21 09:00 06/11/21 08:54 Amlodipine Besylate 5 Mg Tablet PO 5 mg DAILY JULIA Administration Aspirin 81 mg
[2021-06-11] MEDS: INSULIN ASPART (*BKC) 100 UNITS/ML SUB-Q ×2 (13:13→17:20)
[2021-06-11 16:08] LABS: Glucose Point of Care 273 mg/dl (65-105)
[2021-06-11] MEDS: DIGOXIN INJ 250 MCG/ML 2 ML AMP (*BKC) IV PUSH (17:07)
[2021-06-11 20:34] LABS: Glucose Point of Care 216 mg/dl (65-105)
--- NOTE | 2021-06-11 21:33 | WPDCN ---
Assessment and Plan Additional Plan 1. 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 Source of infection most likely cutaneous. One would assume this patient may have come in contact with cats or drugs recently. Patient is currently on Zosyn day 2. . Zosyn has an adequate coverage for pasteurella. Continue current mode of therapy. Follow up on susceptibility pattern And will adjust antibiotics accordingly. I would recommend repeating blood cultures in 24-48 hours. Repeat CBC and BMP in 24-48 hours. 2. Leukocytosis most likely secondary to ongoing bloodstream infection. [place] [address] [place] [address]. Repeat CBC with differential in 12:48 p.m.. 3. Acute on chronic kidney failure. Most likely secondary to gram-negative septicemia and prerenal azotemia from dehydration. Continue hydration. 4. Date of service 06/11/2021. [facility] Data of Consult Date/Time: 06/11/21 21:33 Requesting Physician: Tanesha Graham PA-C Primary Care Provider: [facility] Consult Narrative Narrative: Nolan Bower is a 86 year old male With significant past medical history for chronic kidney disease, congestive heart failure, valvular heart disease, cerebrovascular accident, type 2 diabetes, hypertension and hyperlipidemia presented to the emergency room on 06/09/2021 complaining of nausea and vomiting that started approximately 1 day prior to admission. patient developed nausea and vomiting after eating breakfast. By that evening patient became short of breath. Patient presented today emergency room and was found to have a fever of 101.1. Blood cultures x2 set was collected and both cultures currently are showing pasteurella multocida. CT scan of the abdomen and pelvis showed a 3 cm pancreatic mass with cholelithiasis. Chest x-ray was unremarkable. Patient is currently on Zosyn. Patient states he feels better since admission. Still has intermittent shortness of breath. Nausea and vomiting has subsided. Review of Systems Constitutional: Constitutional: Reports body ache(s) and Reports chills ENT: Reports system reviewed and no additional complaints, except as documented Cardiovascular: Cardiovascular: Reports no additional cardiovascular complaints Respiratory: Respiratory: Reports dyspnea ( shortness of breath without cough or chest pain) Gastrointestinal: Gastrointestinal: Reports other ( nausea and vomiting associated was chills x1 day) Genitourinary: Genitourinary: Reports no additional male genitourinary complaints Musculoskeletal: Musculoskeletal: Reports no additional musculoskeletal complaints Integumentary/Breasts: Skin/Breast: Reports system reviewed and no additional complaints, except as docu Neurologic: Reports system reviewed and no additional complaints, except as documented Psychiatric: Psychiatric: Reports no additional psychiatric complaints Endocrine: Endocrine: Reports no additional endocrine complaints Hematologic/Lymphatic: Hematologic/Lymphatic: Reports no additional hematologic/lymphatic complaints Allergic/Immunologic: Allergic/Immunologic: Reports no additional allergic/immunologic complaints [facility] Past Medical History Medical History (HFpEF) heart failure with preserved ejection fraction Arrhythmia Details unknown; s/p cardioversion years ago CAD (coronary artery disease) CHF (congestive heart failure) CKD (chronic kidney disease), stage IV Glaucoma History of CVA (cerebrovascular accident) Hyperlipidemia Hypertension Type 2 diabetes mellitus Valvular heart disease Surgical History Surgical History History of cataract surgery History of coronary artery bypass graft 2004 History of right knee surgery Family History Family History Father Family history of malignant neoplasm of bone Lung canc
[2021-06-11] MEDS: DOXAZOSIN MESYLATE 2 MG TABLET PO (21:56)
[2021-06-11] MEDS: INSULIN GLARGINE (*BKC) 100 UNITS/ML 18 UNITS SUB-Q (21:59)
[2021-06-12] VITALS (21 sets, daily range): BP systolic 90–136; BP diastolic 40–70; PULSE 60–129; RESP 14–28; TEMP 36–36.9; O2SAT 91–100
--- NOTE | 2021-06-12 | ECHO_ITS ---
Patient Info Name: Nolan Bower Age: 86 years : 1935 Gender: Male Ht: 68 in Wt: 179 lbs BSA: 1.99 m2 HR: 100 bpm BP: 119 / 65 mmHg Heart Rhythm: Sinus Rhythm Technical Quality: Good Exam Date: 06/12/2021 10:22 AM Exam Location: [facility] Patient Status: Inpatient Admit Date: 06/10/2021 Staff Ordering Physician: Tanesha Graham PA-C Real Estate Attorney: Benson Lopez RDCS, RT Attending Provider: Tanesha Graham PA-C Referring Physician: Santos GARNER; Exam Type: CA echo doppler color flow Study Info Indications I50.9 - Heart failure, unspecified Complete two-dimensional, color flow and Doppler transthoracic echocardiogram is performed. Strain analysis performed. Summary 1. Complete two-dimensional, color flow and Doppler transthoracic echocardiogram is performed. 2. Strain analysis performed. 3. Left ventricular chamber dimension is normal. 4. Left ventricular systolic function is normal, estimated at 55-60%. 5. There is moderately increased left ventricular wall thickness. 6. The left ventricular diastolic function is grade II diastolic dysfunction. 7. Global longitudinal strain is abnormal at -10 %. 8. The inferoseptal wall, apical cap, basal anteroseptal, and mid anteroseptal are hypokinetic. 9. Left atrial chamber dimension is mildly enlarged. 10. There is mild aortic valve stenosis with a peak velocity of 189 cm/s, mean gradient of 7 mmHg, and aortic valve area of 1.8 cm2. 11. There is moderate mitral valve regurgitation. 12. The mitral valve annulus is severely calcified. 13. Mild pulmonary hypertension, estimated pulmonary arterial systolic pressure is 37 mmHg. 14. There is mild tricuspid valve regurgitation. Left Ventricle Left ventricular chamber dimension is normal. Left ventricular systolic function is normal, estimated at 55-60%. There is moderately increased left ventricular wall thickness. The left ventricular diastolic function is grade II diastolic dysfunction. Global longitudinal strain is abnormal at -10 %. The inferoseptal wall, apical cap, basal anteroseptal, and mid anteroseptal are hypokinetic. All other mcknight appear normal. Right Ventricle Right ventricular chamber dimension is normal. Right ventricular systolic function is normal. Left Atria Left atrial chamber dimension is mildly enlarged. Right Atria Right atrial chamber dimension is normal. Atrial Septum Intact interatrial septum visualized by color flow imaging. Aortic Valve The aortic valve is trileaflet. There is mild aortic valve stenosis with a peak velocity of 189 cm/s, mean gradient of 7 mmHg, and aortic valve area of 1.8 cm2. There is trace aortic valve regurgitation. There is mild aortic valve calcification. Pulmonic Valve The pulmonic valve is normal. There is no pulmonic valve stenosis. There is trace pulmonic regurgitation. Mitral Valve There is no mitral valve stenosis. There is moderate mitral valve regurgitation. The mitral valve annulus is severely calcified. Tricuspid Valve The tricuspid valve leaflets are normal. There is no significant tricuspid valve stenosis. There is mild tricuspid valve regurgitation. Mild pulmonary hypertension, estimated pulmonary arterial systolic pressure is 37 mmHg. Pericardium/Pleural The pericardium appears normal. There is no pericardial effusion. Inferior Vena Cava Normal inferior vena cava with <50% collapse upon inspiration consistent with elevated right atrial p
[2021-06-12] MEDS: IPRATROPIUM BR 0.02% INH SOLN 0.5 MG/2.5 ML VIAL INHALATION ×2 (02:03→08:06)
[2021-06-12] MEDS: ALBUTEROL SULFATE NEB 2.5 MG/0.5 ML INH 5 MG INHALATION ×3 (02:03→12:36)
[2021-06-12] MEDS: SODIUM CHLORIDE 0.9% IV 1,000 ML 70 ML IV CONT (02:19)
[2021-06-12 05:12] LABS: Hematocrit 27.6 % (42.0-52.0); Hemoglobin 8.7 g/dL (14.0-18.0); Mean Corpuscular HGB Conc 31.5 g/dl (32-36); Mean Corpuscular Hemoglobin 30.4 pg (26-34); Mean Corpuscular Volume 96.5 fl (80-100); Mean Platelet Volume 10.1 fl (7.4-10.4); Platelet Count Result 88 k/mm3 (150-375); Red Blood Count 2.86 M/mm3 (4.6-6.20); Red Cell Distribution Width 13.4 % (11.5-14.5); White Blood Count 15.6 K/mm3 (4.5-10.0)
[2021-06-12 05:23] LABS: Anion Gap 9 mmol/L (8-16); Blood Urea Nitrogen 96 mg/dL (9-20); Calcium 8.4 mg/dL (8.4-10.2); Carbon Dioxide 20 mmol/L (22-30); Chloride 111 mmol/L (98-107); Estimated CRCL calculation 14 ml/min; Estimated Glomerular Filt Rate 17; Glucose 145 mg/dL (75-110); Sodium 140 mmol/L (137-145)
[2021-06-12] MEDS: ACETAMINOPHEN 500 MG TABLET 1000 MG PO (09:48)
[2021-06-12] MEDS: carvediloL 25 MG TABLET PO ×2 (09:50→20:27)
[2021-06-12] MEDS: cilostazoL 100 MG TABLET PO ×2 (09:50→17:28)
[2021-06-12] MEDS: ASPIRIN 81 MG CHEWABLE TABLET PO (09:50)
[2021-06-12] MEDS: ATORVASTATIN 40 MG TABLET PO (09:51)
[2021-06-12] MEDS: ISOSORBIDE MONONITRATE 30 MG TAB.ER.24H PO (09:51)
[2021-06-12] MEDS: amLODIPine BESYLATE 5 MG TABLET PO (09:51)
[2021-06-12] MEDS: guaiFENesin 12 HR 600 MG TABCR PO ×2 (09:51→20:27)
[2021-06-12] MEDS: FINASTERIDE 5 MG TABLET PO (09:51)
[2021-06-12] MEDS: cycloSPORINE 0.4 ML OPHTH SOLUTION 1 DROP EACH EYE ×2 (09:52→20:27)
[2021-06-12] MEDS: BRIMONIDINE TARTRATE 0.15% 5 ML OPHTH SOLN 1 DROP LEFT EYE ×2 (09:52→17:28)
--- NOTE | 2021-06-12 11:03 | PM.PNCARD ---
Progress Note: A&P Assessment and Plan (1) Non-STEMI (non-ST elevated myocardial infarction): Code(s): I21.4 - Non-ST elevation (NSTEMI) myocardial infarction Status: Acute Assessment and Plan: his elevated troponin represents non ST-elevation myocardial infarction. It is uncertain if this related to plaque rupture or secondary to supply demand mismatch demand ischemia in the setting of bacteremia, anemia and underlying CAD. Unfortunately at this point, no anticoagulation should be given because of his bloody stools. Continue low-dose aspirin 81 mg p.o. daily for now. Atorvastatin should be continued as well as his isosorbide, lisinopril, carvedilol. echo pending. Continue conservative therapy. resume Eliquis 2.5 mg p.o. b.i.d. if okay with GI (2) Elevated troponin: Code(s): R77.8 - Other specified abnormalities of plasma proteins Status: Acute Assessment and Plan: as above (3) Paroxysmal atrial flutter: Code(s): I48.92 - Unspecified atrial flutter Status: Acute Assessment and Plan: status post cardioversion remotely. On anticoagulation previously. will resume Eliquis Will order an EKG. Appears to be going in an out of AFib/flutter (4) (HFpEF) heart failure with preserved ejection fraction: Code(s): I50.30 - Unspecified diastolic (congestive) heart failure Status: Acute Assessment and Plan: history of CHF with preserved ejection fraction. I do think he is in some degree of volume overload at this point as he is quite dyspneic. 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 Patient is also bacteremic with fevers. Antibiotics to be started per ID. Subjective Date/time seen: 06/12/21 11:03 Interval history: Admitted 06/10 with n/v. + BC w/ GNR. Atherosclerosis on abd CT. Neg lactate. Neg U/s abd. Dark blood in stool 06/10. date of service 06/12/2021: feeling better overall. Still is somewhat short of breath. No chest pain. No significant swelling. No nausea vomiting Review of Systems Review of Systems: All systems reviewed & are unremarkable except as noted in HPI and below Constitutional: Constitutional: Denies body ache(s), Denies chills, Denies fatigue and Denies headache(s) Eyes: Eyes: Denies blurry vision ENT: Reports Normal hearing present, Denies headache(s) and Denies neck pain Cardiovascular: Cardiovascular: Denies chest pain and Reports dyspnea Respiratory: Respiratory: Reports dyspnea Gastrointestinal: Gastrointestinal: Denies abdominal pain, Reports hematochezia, Reports nausea and Reports vomiting Genitourinary: Genitourinary: Denies dysuria Musculoskeletal: Musculoskeletal: Denies back pain and Denies neck pain Integumentary/Breasts: Skin/Breast: Denies dry skin and Denies unusual bruising Neurologic: Reports Normal hearing present, Denies confusion and Denies headache(s) Psychiatric: Psychiatric: Denies anxiety and Denies confusion Endocrine: Endocrine: Denies fatigue Hematologic/Lymphatic: Hematologic/Lymphatic: Denies easy bleeding and Denies easy bruising Allergic/Immunologic: Allergic/Immunologic: Denies GI upset with certain foods Exam Narrative: Exam Narrativ
--- NOTE | 2021-06-12 11:08 | ECG_ITS ---
Measurements Intervals [place] Rate: 93 P: 1 SC: 183 QRS: -7 QRSD: 98 T: 62 QT: 354 QTc: 440 Interpretive Statements SINUS RHYTHM ANTEROSEPTAL INFARCT, AGE INDETERMINATE CONSIDER INFERIOR INFARCT, AGE INDETERMINATE BORDERLINE ST-T WAVE ABNORMALITY- HIGH LATERAL LEADS ABNORMAL ECG Electronically Signed On 06-12-2021 12:30:24 CDT by Toby Cantor D.O.
[2021-06-12 11:52] LABS: Glucose Point of Care 117 mg/dl (65-105)
--- NOTE | 2021-06-12 12:24 | PC.NURSE ---
[facility] flyer was given to patient.
--- NOTE | 2021-06-12 13:10 | PM.IMPN ---
Progress Note: A&P Assessment and Plan (1) Hypoxia: Code(s): R09.02 - Hypoxemia Status: Acute Assessment and Plan: patient on 4 L nasal cannula and slightly more tachypneic this morning he does admit to having COPD and occasionally using bronchodilators he used to smoke heavily until 1984 on exam patient is diffusely wheezing. COPD versus volume overload check chest x-ray. . DC IV fluids. may need Lasix short course of prednisone bronchodilators incentive spirometry (2) Sepsis: Code(s): A41.9 - Sepsis, unspecified organism Status: Acute Assessment and Plan: 1. 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 Source of infection most likely cutaneous. One would assume this patient may have come in contact with cats or drugs recently. Patient is currently on Zosyn as per infectious disease consultation. hold further IV fluids due to respiratory distress (3) Cholelithiasis: Code(s): K80.20 - Calculus of gallbladder without cholecystitis without obstruction Status: Acute Assessment and Plan: CT abdomen pelvis showed distended gallbladder with gallstones but ultrasound did not show any gallbladder wall thickening or Lopez sign patient also is not tender in right upper quadrant HIDA scan is ordered and pending general surgery swallowing (4) NICHELLE (acute kidney injury): Code(s): N17.9 - Acute kidney failure, unspecified Status: Acute Assessment and Plan: patient has baseline chronic kidney disease but baseline creatinine unknown. his daughter told me that she has requested her frog catcher to fax records. presented with creatinine of 3.1 which is 3.[address] was negative for any hydronephrosis place Tamez catheter for accurate intake and output consult nephrology (5) CKD (chronic kidney disease), stage IV: Code(s): N18.4 - Chronic kidney disease, stage 4 (severe) Status: Acute Assessment and Plan: acute on chronic renal failure (6) Non-STEMI (non-ST elevated myocardial infarction): Code(s): I21.4 - Non-ST elevation (NSTEMI) myocardial infarction Status: Acute Assessment and Plan: patient had elevated troponin and was diagnosed with non ST-elevation myocardial infarction. patient seen by Cardiology recommend conservative management and as this is likely demand mediated ischemia Eliquis on hold due to GI bleed on aspirin echo done and reviewed (7) Elevated troponin: Code(s): R77.8 - Other specified abnormalities of plasma proteins Status: Acute Assessment and Plan: as above (8) Paroxysmal atrial flutter: Code(s): I48.92 - Unspecified atrial flutter Status: Acute Assessment and Plan: status post cardioversion remotely. On anticoagulation previously. (9) (HFpEF) heart failure with preserved ejection fraction: Code(s): I50.30 - Unspecified diastolic (congestive) heart failure Status: Acute Assessment and Plan: history of CHF with preserved ejection fraction. I do think he is in some degree of volume overload at this point as he is quite dyspneic. (10) Hypertension associated with diabetes: Code(s): E11.59 - Type 2 diabetes mellitus with other circulatory complications; I15.2 - Hypertension secondary to endocrine disorders Status: Acute Assessment and Plan: above goal (11) Chronic anticoagulation: Code(s): Z79.01 - intermediate (current) use of anticoagulants Status: Acute Assessment and Plan: resume Eliquis if okay with GI and surgery (12) Bright red blood per rectum: Code(s): K62.5 - Hemorrhage of anus and rectum Status: Acute Assessment and Plan: hemoglobin has been stable. GI consulted not on any anticoagulation at this time (13) Type 2 diabetes mellitus, controlled, with renal complications: Code(s): E11.29 - Type 2 diabetes mellitus with ot
[2021-06-12 13:39] LABS: IFOB Positive Control Positive; Immunochemical Fecal Occult Bl Positive (N)
--- NOTE | 2021-06-12 15:55 | PM.CNNEP ---
Assessment and Plan Assessment and plan (1) NICHELLE (acute kidney injury): Code(s): N17.9 - Acute kidney failure, unspecified Status: Acute Assessment and Plan: likely secondary to ATN from: - sepsis/infection - relative hypotension - ongoing GODFREY-I/diuretic/BP medication use prior to admission - prerenal factors (from vomiting) CT imaging make no mention of obstruction with regard to kidneys check urine electrolytes and urine eosinophils follow repeat labs and urine output at risk for requiring STEREOTYPER HELPER/dialysis (2) Chronic kidney disease, stage IV (severe): Code(s): N18.4 - Chronic kidney disease, stage 4 (severe) Status: Chronic Assessment and Plan: unclear baseline but suspect this degree of CKD based the fact he attended renal/dialysis education a few years ago follow trend for now (3) Sepsis: Code(s): A41.9 - Sepsis, unspecified organism Status: Acute Assessment and Plan: blood culture with Pasteurella multocida Infectious Disease following continue antibiotics follow repeat cultures (4) Non-STEMI (non-ST elevated myocardial infarction): Code(s): I21.4 - Non-ST elevation (NSTEMI) myocardial infarction Status: Acute Assessment and Plan: as noted by trend of troponins Cardiology following (5) Diastolic heart failure: Code(s): I50.30 - Unspecified diastolic (congestive) heart failure Status: Acute Assessment and Plan: issues with volume overload during admission agree with PRN IV diuretics if limited response with diuretics, this may push the need for dialysis (6) Anemia: Code(s): D64.9 - Anemia, unspecified Status: Acute Assessment and Plan: due to acute illness and CKD follow trend of H/H (7) Diabetes: Code(s): E11.9 - Type 2 diabetes mellitus without complications Status: Chronic Assessment and Plan: follow accuchecks glycemic control Will continue to follow. History of Present Illness Reason for Consult Consult date: 06/12/21 Reason for consult: acute renal failure (on chronic kidney disease) Chief Complaint Chief complaint: Fever of Unknown Origin,Elevated Troponin,Acute Re History of Present Illness Narrative: The patient is a 86-year-old male with an extensive past medical history as outlined below who [facility] with complaints of vomiting. The patient has been having vomiting since the day before admission. It started with breakfast and has happened at least 5-6 episodes over the course of the last 24 hours. He he has been unable to keep any food or liquids down. Over the course of the day it seems he was getting weaker and weaker because he has been unable to eat anything and the ongoing vomiting as well. Later that same evening, he reports some shortness of breath and given this symptom in conjunction with his persistent vomiting, he came to the emergency room for further evaluation. Workup and evaluation emergency room demonstrated the patient to be relatively hypotensive in association with a fever of 101.0. He was reportedly tachycardic as well as tachypneic and although it is not documented if he had hypoxia, 2 L of supplemental oxygen was provided to him. He did appear to be acutely ill and routine blood test demonstrated CBC with an elevated white blood cell count, anemia, and low platelets. His chemistry showed an elevated BUN and creatinine but his liver function tests were normal and his urinalysis was without evidence of infection. His BNP was 645 in his lipase was 175 with a mildly elevated troponin of his. Given his symptoms of vomiting, a CT scan of the abdomen pelvis was done which demonstrated an incidental pancreatic cystic mass as well as significant atherosclerosis in his celiac axis, superior mesenteric artery, and renal arteries. Given his febrile
[2021-06-12 16:34] LABS: Glucose Point of Care 114 mg/dl (65-105)
[2021-06-12] MEDS: FUROSEMIDE INJ 100 MG/10 ML VIAL 80 MG IV PUSH (17:19)
[2021-06-12] MEDS: methylPREDNISolone SOD SUCC 125 MG VIAL 60 MG IV PUSH (17:21)
--- NOTE | 2021-06-12 17:40 | PCRCNOTE ---
Assessed pt for PRN respiratory tx at request of RN. Pt had just recieved lasix 20 minutes prior. Pt was not in respiratory distress and breath sounds were decreased crackles. Will reassess one hour post lasix administration.
[2021-06-12] MEDS: PANTOPRAZOLE SODIUM IV 40 MG VIAL IV PUSH (18:11)
--- NOTE | 2021-06-12 18:36 | PCRCNOTE ---
Pt reassessed one hour post lasix. pt has better air movement than this earlier in the day. Pt also had less rhonchi. Will continue to monitor.
[2021-06-12 20:04] LABS: Glucose Point of Care 130 mg/dl (65-105)
[2021-06-12] MEDS: INSULIN GLARGINE (*BKC) 100 UNITS/ML 18 UNITS SUB-Q (20:27)
[2021-06-12] MEDS: DOXAZOSIN MESYLATE 2 MG TABLET PO (20:27)
[2021-06-13] VITALS (16 sets, daily range): BP systolic 92–109; BP diastolic 30–53; PULSE 86–122; RESP 20–22; TEMP 35.6–36.6; O2SAT 95–100
[2021-06-13 05:12] LABS: Hematocrit 26.8 % (42.0-52.0); Hemoglobin 8.1 g/dL (14.0-18.0); Mean Corpuscular HGB Conc 30.2 g/dl (32-36); Mean Corpuscular Hemoglobin 30.1 pg (26-34); Mean Corpuscular Volume 99.6 fl (80-100); Mean Platelet Volume 10.6 fl (7.4-10.4); Platelet Count Result 89 k/mm3 (150-375); Red Blood Count 2.69 M/mm3 (4.6-6.20); Red Cell Distribution Width 13.7 % (11.5-14.5); White Blood Count 9.9 K/mm3 (4.5-10.0)
[2021-06-13 05:17] LABS: Alanine Aminotransferase 39 U/L (4-50); Albumin Level 2.7 g/dL (3.5-5.1); Alkaline Phosphatase 66 U/L (38-126); Anion Gap 11 mmol/L (8-16); Aspartate Amino Transferase 23 U/L (17-59); Bilirubin,Total 0.4 mg/dL (0.2-1.3); Blood Urea Nitrogen 103 mg/dL (9-20); Calcium 8.6 mg/dL (8.4-10.2); Carbon Dioxide 16 mmol/L (22-30); Chloride 110 mmol/L (98-107); Estimated CRCL calculation 12 ml/min; Estimated Glomerular Filt Rate 15; Glucose 144 mg/dL (75-110); Magnesium 1.9 mg/dL (1.6-2.3); Potassium 4.4 mmol/L (3.4-5.0); Sodium 137 mmol/L (137-145)
[2021-06-13 08:32] LABS: Glucose Point of Care 146 mg/dl (65-105)
--- NOTE | 2021-06-13 09:32 | PM.PNCARD ---
Progress Note: A&P Assessment and Plan (1) Non-STEMI (non-ST elevated myocardial infarction): Code(s): I21.4 - Non-ST elevation (NSTEMI) myocardial infarction Status: Acute Assessment and Plan: his elevated troponin represents non ST-elevation myocardial infarction. It is uncertain if this related to plaque rupture or secondary to supply demand mismatch demand ischemia in the setting of bacteremia, anemia and underlying CAD. Unfortunately at this point, no anticoagulation should be given because of his bloody stools. Continue low-dose aspirin 81 mg p.o. daily for now. Atorvastatin should be continued as well as his isosorbide, carvedilol. Continue conservative therapy. resume Eliquis 2.5 mg p.o. b.i.d. if okay with GI (2) Elevated troponin: Code(s): R77.8 - Other specified abnormalities of plasma proteins Status: Acute Assessment and Plan: as above. Will repeat a troponin (3) Paroxysmal atrial flutter: Code(s): I48.92 - Unspecified atrial flutter Status: Acute Assessment and Plan: status post cardioversion remotely. On anticoagulation previously. will resume Eliquis In sinus rhythm. (4) (HFpEF) heart failure with preserved ejection fraction: Code(s): I50.30 - Unspecified diastolic (congestive) heart failure Status: Acute Assessment and Plan: history of CHF with preserved ejection fraction. 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 Patient is also bacteremic with fevers. Antibiotics to be started per ID. Subjective Date/time seen: 06/13/21 09:32 Interval history: Admitted 06/10 with n/v. + BC w/ GNR. Atherosclerosis on abd CT. Neg lactate. Neg U/s abd. Dark blood in stool 06/10. date of service 06/13/2021: feeling better overall. more comfortable today. No chest pain. No significant swelling. No nausea vomiting Review of Systems Review of Systems: All systems reviewed & are unremarkable except as noted in HPI and below Constitutional: Constitutional: Denies body ache(s), Denies chills, Denies fatigue and Denies headache(s) Eyes: Eyes: Denies blurry vision ENT: Reports Normal hearing present, Denies headache(s) and Denies neck pain Cardiovascular: Cardiovascular: Denies chest pain and Reports dyspnea Respiratory: Respiratory: Reports dyspnea Gastrointestinal: Gastrointestinal: Denies abdominal pain, Reports hematochezia, Reports nausea and Reports vomiting Genitourinary: Genitourinary: Denies dysuria Musculoskeletal: Musculoskeletal: Denies back pain and Denies neck pain Integumentary/Breasts: Skin/Breast: Denies dry skin and Denies unusual bruising Neurologic: Reports Normal hearing present, Denies confusion and Denies headache(s) Psychiatric: Psychiatric: Denies anxiety and Denies confusion Endocrine: Endocrine: Denies fatigue Hematologic/Lymphatic: Hematologic/Lymphatic: Denies easy bleeding and Denies easy bruising Allergic/Immunologic: Allergic/Immunologic: Denies GI upset with certain foods Exam Narrative: Exam Narrative: Alert oriented. Appears in no acute distress. Appears stated age Const: General: comfortable; No in distress or
[2021-06-13] MEDS: guaiFENesin 12 HR 600 MG TABCR PO ×2 (09:46→20:39)
[2021-06-13] MEDS: ASPIRIN 81 MG CHEWABLE TABLET PO (09:46)
[2021-06-13] MEDS: carvediloL 25 MG TABLET PO ×2 (09:46→20:39)
[2021-06-13] MEDS: ATORVASTATIN 40 MG TABLET PO (09:46)
[2021-06-13] MEDS: FINASTERIDE 5 MG TABLET PO (09:46)
[2021-06-13] MEDS: cilostazoL 100 MG TABLET PO ×2 (09:46→19:26)
--- NOTE | 2021-06-13 09:46 | PM.IMPN ---
Progress Note: A&P Assessment and Plan (1) Hypoxia: Code(s): R09.02 - Hypoxemia Status: Acute Assessment and Plan: the patient remains on oxygen at 4 L per nasal cannula. Patient had a chest x-ray yesterday which showed increased bilateral mid and lower lung infiltrates and/or atelectasis. Right greater than left since 06/19/2021. Small right pleural effusion is suggestion. Patient was given Lasix yesterday and a given 1 time dose of Lasix again today. The patient stated that he is breathing much better today. Continue with nebulizer treatment. The patient does have a history of COPD. Continue with Solu-Medrol. (2) Sepsis: Code(s): A41.9 - Sepsis, unspecified organism Status: Acute Assessment and Plan: Infectious diseasehas seen the patient. 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 (3) Cholelithiasis: Code(s): K80.20 - Calculus of gallbladder without cholecystitis without obstruction Status: Acute Assessment and Plan: the patient does not have any abdominal tenderness or knee complaints of upper quadrant pain. CT of the abdomen was read as a follow. 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 The differential diagnosis includes pseudocyst, intraductal papillary mucinous neoplasm (IPMN), mucinous cystic neoplasm (MCN), and the less common serous cystadenoma and neuroendocrine tumor. 2: Cholelithiasis. 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 abdominal ultrasound was read as distended gallbladder with gallstones. No gallbladder wall thickening or sonographic Lopez sign to suggest acute cholecystitis. The patient is undergoing a HIDA scan today. (4) NICHELLE (acute kidney injury): Code(s): N17.9 - Acute kidney failure, unspecified Status: Acute Assessment and Plan: Patient has stage 4 chronic kidney disease. The patient is undergoing a renal ultrasound today. Nephrology has been consulted. IV fluids have been discontinued due to possibility of fluid overload. (5) Acute on chronic kidney failure: Code(s): N17.9 - Acute kidney failure, unspecified; N18.9 - Chronic kidney disease, unspecified Status: Acute Assessment and Plan: Patient is getting a renal ultrasound performed today. The patient appears to be at his baseline. Nephrology is following. (6) Non-STEMI (non-ST elevated myocardial infarction): Code(s): I21.4 - Non-ST elevation (NSTEMI) myocardial infarction Status: Acute Assessment and Plan: Cardiology is following. it is uncertain if his related to plaque rupture or secondary to supply demand mismatch demand ischemia in the setting of bacteremia, anemia and underlying coronary artery disease. 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 Atorvastatin continued, isosorbide Currently on hold Most likely due to low blood pressure. Coreg Continued.. Continue conservative therapy resume Eliquis when okay with GI. (7) Hypertensive heart disease with CHF: Code(s): I11.0 - Hypertensive heart disease with heart failure Status: Acute Assessment and Plan: Norvasc is currently on hold. Coreg has been continued. Isosorbide is on home. Patient's blood pressure still in the soft side please continue to monitor. (8) Mixed hyperlipidemia due to type 2 diabetes mellitus: Code(s): E11.69 - Type 2 diabetes mellitus with other specified complication; E78.2 - Mixed hyperlipidemia Status: Acute Assessment and Plan: Continue with atorvastatin (9) Paroxysmal atrial flutter: Code(s): I48.92 - Unspecified atrial flutter Status: Acute Assessment and Plan: the patient is currently in sinus rhythm. His Eliquis is on hold. The patient is having frequent PVCs. I will check his magnesium. (10) (HFpEF) heart failure with preserve
[2021-06-13] MEDS: methylPREDNISolone SOD SUCC 125 MG VIAL 60 MG IV PUSH (09:47)
[2021-06-13] MEDS: BRIMONIDINE TARTRATE 0.15% 5 ML OPHTH SOLN 1 DROP LEFT EYE ×2 (09:47→19:07)
[2021-06-13] MEDS: cycloSPORINE 0.4 ML OPHTH SOLUTION 1 DROP EACH EYE ×2 (09:48→23:07)
[2021-06-13] MEDS: PANTOPRAZOLE SODIUM IV 40 MG VIAL IV PUSH ×2 (09:48→20:40)
--- NOTE | 2021-06-13 10:00 | PCOTNOTE ---
Attempted 2 times this A.M. Per RN, hold off until tomorrow due to Patient having testing this date.
[2021-06-13] MEDS: FUROSEMIDE INJ 40 MG/4 ML VIAL 20 MG IV PUSH (10:01)
--- NOTE | 2021-06-13 11:11 | PM.PNNEP ---
Progress Note: A&P Assessment and Plan (1) NICHELLE (acute kidney injury): Code(s): N17.9 - Acute kidney failure, unspecified Status: Acute Assessment and Plan: likely secondary to ATN from: - sepsis/infection - relative hypotension - ongoing GODFREY-I/diuretic/BP medication use prior to admission - prerenal factors (from vomiting) CT imaging make no mention of obstruction with regard to kidneys urine lytes c/w prerenal azotemia and urine eosinophils negative follow repeat labs and urine output remains at risk for requiring CUSHION SEWER/dialysis (2) Chronic kidney disease, stage IV (severe): Code(s): N18.4 - Chronic kidney disease, stage 4 (severe) Status: Chronic Assessment and Plan: unclear baseline but suspect this degree of CKD based the fact he attended renal/dialysis education a few years ago follow trend for now (3) Sepsis: Code(s): A41.9 - Sepsis, unspecified organism Status: Acute Assessment and Plan: blood culture with Pasteurella multocida Infectious Disease following continue antibiotics follow repeat cultures (4) Non-STEMI (non-ST elevated myocardial infarction): Code(s): I21.4 - Non-ST elevation (NSTEMI) myocardial infarction Status: Acute Assessment and Plan: as noted by trend of troponins Cardiology following related to plaque rupture or secondary to supply demand mismatch demand ischemia in the setting of bacteremia/anemia/derlying CAD(?) (5) Diastolic heart failure: Code(s): I50.30 - Unspecified diastolic (congestive) heart failure Status: Acute Assessment and Plan: issues with volume overload since admission (likely worsened by #1) agree with PRN IV diuretics if limited response with diuretics, this may push the need for dialysis (6) Anemia: Code(s): D64.9 - Anemia, unspecified Status: Acute Assessment and Plan: due to acute illness and CKD follow trend of H/H (7) Diabetes: Code(s): E11.9 - Type 2 diabetes mellitus without complications Status: Chronic Assessment and Plan: follow accuchecks glycemic control Will continue to follow. Subjective Date/time seen: 06/13/21 11:11 Fluctuating respiratory status requiring increasing oxygen requirements (4L) as well as intermittent use of IV lasix; states he feels okay but appears in mild distress; appetite remains suboptimal; kidney function continues to deteriorate by AM labs. Exam Narrative: Exam Narrative: General: ill appearing Cacus male/female in NAD Heart: normal S1 and S2; no rub Lungs: decreased at bases Abdomen: soft, nontender, nondistended, positive bowel sounds Extremities: no cyanosis or clubbing; trace edema Skin: warm and dry Objective Data Vital Signs Vital Signs: Vital Signs Temp Pulse Resp BP Pulse Ox 06/13/21 09:46 94 06/13/21 08:00 35.8 C L 95 20 99/53 L 96 06/13/21 06:00 122 H 06/13/21 05:33 100 06/13/21 04:00 36.6 C 90 20 109/52 L 100 06/13/21 02:00 95 06/13/21 00:00 95 96 06/12/21 23:48 36.6 C 129 H 20 101/40 L 94 06/12/21 22:00 126 H 06/12/21 20:00 126 H 96 06/12/21 19:52 36.4 C 96 22 H 90/42 L 96 06/12/21 18:00 87 06/12/21 16:00 36.9 C 94 20 104/51 L 97 06/12/21 12:47 93 28 H 06/12/21 12:38 91 28 H Intake/Output Intake/Output: Intake & Output 06/10/21 06/11/21 06/12/21 06/13/21 23:59 23:59 23:59 23:59 Intake Total 3350 1930 2050 0 Output Total 6267 280 9244 200 Balance 2009 1130 900 -200 Meds/Results Medications: Active Medications Generic Name Dose Route Start Last Admin Trade Name Kennethq PRN Reason Stop Dose Admin Acetaminophen 1,000 mg 06/11/21 01:36 06/12/21 09:48 Acetaminophen 500 Mg Tablet PO 1,000 mg Q6H PRN Administration Mild Pain (1-3) or Fever Albuterol 5 mg
--- NOTE | 2021-06-13 11:11 | P.PNNP_ITS ---
Progress Note: A&P Assessment and Plan (1) NICHELLE (acute kidney injury): Code(s): N17.9 - Acute kidney failure, unspecified Status: Acute Assessment and Plan: * likely secondary to ATN from: - sepsis/infection - relative hypotension - ongoing GODFREY-I/diuretic/BP medication use prior to admission - prerenal factors (from vomiting) * CT imaging make no mention of obstruction with regard to kidneys * urine lytes c/w prerenal azotemia and urine eosinophils negative * follow repeat labs and urine output * remains at risk for requiring LINEN CONTROLLER/dialysis (2) Chronic kidney disease, stage IV (severe): Code(s): N18.4 - Chronic kidney disease, stage 4 (severe) Status: Chronic Assessment and Plan: * unclear baseline * but suspect this degree of CKD based the fact he attended renal/dialysis education a few years ago * follow trend for now (3) Sepsis: Code(s): A41.9 - Sepsis, unspecified organism Status: Acute Assessment and Plan: * blood culture with Pasteurella multocida * Infectious Disease following * continue antibiotics * follow repeat cultures (4) Non-STEMI (non-ST elevated myocardial infarction): Code(s): I21.4 - Non-ST elevation (NSTEMI) myocardial infarction Status: Acute Assessment and Plan: * as noted by trend of troponins * Cardiology following * related to plaque rupture or secondary to supply demand mismatch demand ischemia in the setting of bacteremia/anemia/derlying CAD(?) (5) Diastolic heart failure: Code(s): I50.30 - Unspecified diastolic (congestive) heart failure Status: Acute Assessment and Plan: * issues with volume overload since admission (likely worsened by #1) * agree with PRN IV diuretics * if limited response with diuretics, this may push the need for dialysis (6) Anemia: Code(s): D64.9 - Anemia, unspecified Status: Acute Assessment and Plan: * due to acute illness and CKD * follow trend of H/H (7) Diabetes: Code(s): E11.9 - Type 2 diabetes mellitus without complications Status: Chronic Assessment and Plan: * follow accuchecks * glycemic control Will continue to follow. Subjective Date/time seen: 06/13/21 11:11 Fluctuating respiratory status requiring increasing oxygen requirements (4L) as well as intermittent use of IV lasix; states he feels okay but appears in mild distress; appetite remains suboptimal; kidney function continues to deteriorate by AM labs. Exam Narrative: Exam Narrative: General: ill appearing Cacus male/female in NAD Heart: normal S1 and S2; no rub Lungs: decreased at bases Abdomen: soft, nontender, nondistended, positive bowel sounds Extremities: no cyanosis or clubbing; trace edema Skin: warm and dry Objective Data Vital Signs Vital Signs: Vital Signs Temp Pulse Resp BP Pulse Ox 06/13/21 09:46 94 06/13/21 08:00 35.8 C L 95 20 99/53 L 96 06/13/21 06:00 122 H 06/13/21 05:33 100 06/13/21 04:00 36.6 C 90 20 109/52 L 100 06/13/21 02:00 95 06/13/21 00:00 95 96 06/12/21 23:48 36.6 C 129 H 20 101/40 L 94 06/12/21 22:00 126 H 06/12/21 20:00 126 H 96 06/12/21 19:52 36.4 C 96 22 H 90/42 L 96 06/12/21 18:00 87
--- NOTE | 2021-06-13 11:23 | PCPTNOTE ---
Attempted to see patient for PT, unable to see patient due to patient out of room for testing.
[2021-06-13 13:35] LABS: Glucose Point of Care 150 mg/dl (65-105)
--- NOTE | 2021-06-13 16:00 | WPDGICN ---
Assessment and Plan Assessment and plan (1) Septicemia: Code(s): A41.9 - Sepsis, unspecified organism Status: Acute Assessment and Plan: from pasteurella, on iv antibiotics unknown source but probably can explain initial presentation with myriad of symptoms (2) Bright red blood per rectum: Code(s): K62.5 - Hemorrhage of anus and rectum Status: Acute Assessment and Plan: hb low but stable son says that he had hemorrhoids in the past he would rather not to pursue with endoscopic evaluation I would just monitor for more signs of bleeding and should be ok to resume his chronic anticoagulation per cardiology as long as no more significant GIB (he has pvd, afib, etc) (3) Non-STEMI (non-ST elevated myocardial infarction): Code(s): I21.4 - Non-ST elevation (NSTEMI) myocardial infarction Status: Acute Assessment and Plan: management by cardiology (4) Chronic anticoagulation: Code(s): Z79.01 - 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 anticoagulants Status: Acute (5) NICHELLE (acute kidney injury): Code(s): N17.9 - Acute kidney failure, unspecified Status: Acute Assessment and Plan: medical support (6) Paroxysmal atrial flutter: Code(s): I48.92 - Unspecified atrial flutter Status: Acute (7) Anemia: Code(s): D64.9 - Anemia, unspecified Status: Acute Assessment and Plan: chronic anemia, stable for now GI Consult Note Consult date/time: 06/13/21 16:00 Reason for consult: rectal bleeding HPI: Nolan Bower is a 86 year old male with history of CHF, CKD, CAD/PVD, valvular disease, CVA on blood thinners, diabetes mellitus, hypertension who was admitted this last weekend with new onset of nausea and vomiting, also generalized weakness. His son -who is at the bedside right now- decided to bring him to ER. Patient is not best historian but his son is helping. He had fever in the ER with leukocytosis, also was tachycardic and tachypneic. Blood culture report Pasteurella and started on antibiotics. ID is on board. I was called because also noted blood in stools but son says that patient has long history of hemorrhoids and had colon polyps in the past. He also was anemic with hb fluctuating 8-9 last few days (baseline 10-11). He also had elevated creatinine high 3's and evaluated by nephrology, had mild elevation of troponin and cardiology is on board. CT a/p reviewed, incidental finding of pancreatic cystic mass, cholelithiasis, and atherosclerosis of the celiac axis, SMA, and renal arteries. Surgery evaluted patient, HIDA scan today showed low gallbladder ejection fraction, consistent with gallbladder dysfunction and/or chronic cholecystitis. No more report of bleeding per environmental studies program director of Systems Constitutional: Constitutional: Reports fatigue and Reports weakness Eyes: Eyes: Denies blurry vision ENT: Reports Normal hearing present Cardiovascular: Cardiovascular: Denies leg edema Respiratory: Respiratory: Denies cough Gastrointestinal: Gastrointestinal: Reports nausea and Reports vomiting Genitourinary: Genitourinary: Denies dysuria Musculoskeletal: Musculoskeletal: Denies joint swelling Integumentary/Breasts: Skin/Breast: Denies dry skin Neurologic: Denies Abnormal speech present Psychiatric: Psychiatric: Denies homicidal ideation [facility] Past Medical History Medical History (HFpEF) heart failure with preserved ejection fraction Arrhythmia Details unknown; s/p cardioversion years ago CAD (coronary artery disease) CHF (congestive heart failure) CKD (chronic kidney disease), stage IV Glaucoma History of CVA (cerebrovascular accident) Hyperlipidemia Hypertension Type 2 diabetes mellitus Valvular heart disease Surgical History Surgical History History of cataract surgery History of coronary artery bypass graft 2
[2021-06-13 16:22] LABS: Glucose Point of Care 183 mg/dl (65-105)
--- NOTE | 2021-06-13 19:34 | PC.NURSE ---
Spoke with Dr Valenzuela and he said he thought it was ok to restart Eliquis from a GI stand point
[2021-06-13 19:48] LABS: Creatinine Urine 129.4 mg/dL; Total Protein Urine Random 60 mg/dL; Ur Ttl Prot Creatinine Ratio 0.46 mg/mg (0-0.20)
[2021-06-13 19:52] LABS: Sodium Urine Random 12 meq/L
[2021-06-13 19:55] LABS: Creatinine Urine 131.6 mg/dL
[2021-06-13 20:30] LABS: Glucose Point of Care 225 mg/dl (65-105)
[2021-06-13] MEDS: DOXAZOSIN MESYLATE 2 MG TABLET PO (20:39)
[2021-06-13] MEDS: INSULIN GLARGINE (*BKC) 100 UNITS/ML 18 UNITS SUB-Q (20:40)
--- NOTE | 2021-06-13 20:59 | WPDINFPN2 ---
Progress Note: A&P Additional Plan 1. 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 Source of infection most likely cutaneous. Patient states that he is regularly in contact with his daughter's dog. Patient is currently on Zosyn day 4. patient is responding well to treatment. Repeat blood cultures x2 sets 2. Leukocytosis most likely secondary to ongoing bloodstream infection[place] [address] [place] 9000. Repeat CBC with differential in am. 3. Acute on chronic kidney failure. Most likely secondary to gram-negative septicemia and prerenal azotemia from dehydration. Continue hydration. Subjective Date/time seen: 06/13/21 20:59 Exam HENMT: Head: normal to inspection Eyes: General: appearance normal, both eyes and all related structures Resp: Effort & Inspection: normal respiratory effort Cardio: Rate: regular rate Heart sounds: S1 normal heart sound present and S2 normal heart sound present GI: Inspection: normal to inspection Auscultation: normal bowel sounds Skin: General skin exam: normal color Lesions: no lesions Rashes: no rashes Neuro: General: oriented to person Cognition (Neuro): normal cognition Extrem: General: normal to inspection Psych: Appearance: grossly normal Affect: normal affect Objective Data Vital Signs Vital Signs: Vital Signs - 24 hr 06/12/21 22:00 06/12/21 23:48 06/13/21 00:00 Temperature 36.6 C Pulse Rate 126 H 129 H 95 Respiratory Rate 20 Blood Pressure 101/40 L Pulse Oximetry 94 96 06/13/21 02:00 06/13/21 04:00 06/13/21 05:33 Temperature 36.6 C Pulse Rate 95 90 Respiratory Rate 20 Blood Pressure 109/52 L Pulse Oximetry 100 100 06/13/21 06:00 06/13/21 08:00 06/13/21 09:46 Temperature 35.8 C L Pulse Rate 122 H 90 94 Respiratory Rate 20 Blood Pressure 99/53 L Pulse Oximetry 96 06/13/21 10:00 06/13/21 12:00 06/13/21 13:34 Temperature 35.9 C L Pulse Rate 95 86 88 Respiratory Rate 20 Blood Pressure 104/43 L Pulse Oximetry 96 97 06/13/21 14:00 06/13/21 16:00 06/13/21 18:00 Temperature 35.6 C L Pulse Rate 91 87 91 Respiratory Rate 20 Blood Pressure 92/30 L Pulse Oximetry 96 06/13/21 20:00 Temperature 36.5 C Pulse Rate 93 Respiratory Rate 22 H Blood Pressure 98/40 L Pulse Oximetry 95 Intake/Output Intake/Output: Intake & Output 06/10/21 06/11/21 06/12/21 06/13/21 23:59 23:59 23:59 23:59 Intake Total 3350 1930 2050 290 Output Total 2287 923 9916 350 Balance 2010 1130 900 -60 Meds/Results Medications: Active Medications Generic Name Dose Route Start Last Admin Trade Name Freq PRN Reason Stop Dose Admin Acetaminophen 1,000 mg 06/11/21 01:36 06/12/21 09:48 Acetaminophen 500 Mg Tablet PO 1,000 mg Q6H PRN Administration Mild Pain (1-3) or Fever Albuterol 5 mg 06/12/21 13:26 Albuterol Sulfate Neb 2.5 Mg/0.5 Ml Inh INHALATION Q4HRT PRN Wheezing or SOB Amlodipine Besylate 5 mg 06/11/21 09:00 06/12/21 09:51 Amlodipine Besylate 5 Mg Tablet PO 5 mg DAILY JULIA Administration Apixaban 2.5 mg 06/12/21 21:00 Apixaban 2.5 Mg Tablet PO Q12HR JULIA Aspirin 81 mg 06/11/21 08:00 06/13/21 09:46 Aspirin 81 Mg Chewable Tablet PO 81 mg DAILY@0800 JULIA Administration Atorvastatin Calcium 40 mg 06/11/21 09:00 06/13/21 09:46 Atorvastatin 40 Mg Tablet PO 40 mg DAILY JULIA Administration Brimonidine Tartrate 1 drop 06/10/21 17:00 06/13/21 19:07 Brimonidine Tartrate 0.15% 5 Ml Ophth Soln LEFT EYE 1 drop BID JULIA Administration Carvedilol 25 mg 06/10/21 21:00 06/13/21 20:39 Carvedilol 25 Mg Tablet PO 25 mg Q12HR JULIA Administration Cilostazol 100 mg 06/10/21 17:00 06/13/21 19:26 Cilostazol 100 Mg Tablet PO 100 mg BIDWM JULIA Administration Cyclosporine 1 drop 06/10/21 21:00 06/13/21 09:48 Cyclosporine 0.4 Ml Ophth Solution EACH EYE 1 drop Q12HR JULIA Administration
[2021-06-13 21:03] LABS: Eosinophil Urine None Seen % (None Seen)
[2021-06-14] VITALS (14 sets, daily range): BP systolic 89–106; BP diastolic 36–60; PULSE 68–97; RESP 16–28; TEMP 35.9–36.9; O2SAT 92–99
[2021-06-14 05:38] LABS: Hematocrit 25.5 % (42.0-52.0); Hemoglobin 7.8 g/dL (14.0-18.0); Mean Corpuscular HGB Conc 30.6 g/dl (32-36); Mean Corpuscular Hemoglobin 30.2 pg (26-34); Mean Corpuscular Volume 98.8 fl (80-100); Mean Platelet Volume 10.2 fl (7.4-10.4); Platelet Count Result 97 k/mm3 (150-375); Red Blood Count 2.58 M/mm3 (4.6-6.20); Red Cell Distribution Width 13.8 % (11.5-14.5)
[2021-06-14 05:42] LABS: Alanine Aminotransferase 40 U/L (4-50); Albumin Level 2.8 g/dL (3.5-5.1); Alkaline Phosphatase 64 U/L (38-126); Anion Gap 14 mmol/L (8-16); Aspartate Amino Transferase 24 U/L (17-59); Bilirubin,Total 0.4 mg/dL (0.2-1.3); Calcium 8.3 mg/dL (8.4-10.2); Carbon Dioxide 16 mmol/L (22-30); Chloride 107 mmol/L (98-107); Estimated CRCL calculation 9 ml/min; Estimated Glomerular Filt Rate 11; Glucose 221 mg/dL (75-110); Lactate Dehydrogenase 506 U/L (313-618); Lipase 125 U/L (23-300); Magnesium 2.1 mg/dL (1.6-2.3); Phosphorus 9.6 mg/dL (2.5-4.5); Potassium 4.6 mmol/L (3.4-5.0); Sodium 137 mmol/L (137-145)
[2021-06-14 05:49] LABS: Lactic Acid Reflex 0.5 mmol/L (0.7-2.1)
[2021-06-14 06:15] LABS: Blood Urea Nitrogen 129 mg/dL (9-20)
[2021-06-14 07:37] LABS: Band Neutrophils Percent 3 % (0-6); Lymphocytes Absolute Manual 0.36 K/mm3 (1.1-4.5); Monocytes Absolute Manual 0.36 K/mm3 (0.1-0.90); Monocytes Percent Manual 3 % (3-9); Neutrophils Absolute Manual 11.28 K/mm3 (1.3-6.7); Neutrophils Percent Manual 91 % (46-73); Total Cells Counted 100
[2021-06-14 07:38] LABS: Platelet Estimate Decreased (Adequate)
[2021-06-14 07:39] LABS: Burr Cells 2+ (NORMAL)
[2021-06-14 08:25] LABS: Glucose Point of Care 229 mg/dl (65-105)
[2021-06-14] MEDS: cycloSPORINE 0.4 ML OPHTH SOLUTION 1 DROP EACH EYE ×2 (09:05→20:22)
[2021-06-14] MEDS: BRIMONIDINE TARTRATE 0.15% 5 ML OPHTH SOLN 1 DROP LEFT EYE ×2 (09:05→17:52)
[2021-06-14] MEDS: ATORVASTATIN 40 MG TABLET PO (09:05)
[2021-06-14] MEDS: FINASTERIDE 5 MG TABLET PO (09:05)
[2021-06-14] MEDS: INSULIN ASPART (*BKC) 100 UNITS/ML SUB-Q ×3 (09:05→17:52)
[2021-06-14] MEDS: ASPIRIN 81 MG CHEWABLE TABLET PO (09:05)
[2021-06-14] MEDS: APIXABAN 2.5 MG TABLET PO ×2 (09:05→20:22)
[2021-06-14] MEDS: methylPREDNISolone SOD SUCC 125 MG VIAL 60 MG IV PUSH (09:10)
--- NOTE | 2021-06-14 09:10 | PCOTNOTE ---
Attempted to see Patient at this time. RN in room at this time due to Patient having increased confusion, pulling out his IV, oxygen and having shortness of breath with no excesion RN putting a new IV in at this time, and requested therapy to check back at a later time.
[2021-06-14] MEDS: PANTOPRAZOLE SODIUM IV 40 MG VIAL IV PUSH ×2 (09:30→20:23)
[2021-06-14] MEDS: guaiFENesin 12 HR 600 MG TABCR PO ×2 (09:30→20:22)
[2021-06-14] MEDS: cilostazoL 100 MG TABLET PO ×2 (09:30→17:52)
[2021-06-14 12:09] LABS: Glucose Point of Care 231 mg/dl (65-105)
--- NOTE | 2021-06-14 12:18 | PM.PNCARD ---
Progress Note: A&P Assessment and Plan (1) Non-STEMI (non-ST elevated myocardial infarction): Code(s): I21.4 - Non-ST elevation (NSTEMI) myocardial infarction <HA Melara - Last Filed: 06/15/21 16:53> Status: Acute <HA Melara - Last Filed: 06/15/21 16:53> Assessment and Plan: his elevated troponin represents non ST-elevation myocardial infarction. It is uncertain if this related to plaque rupture or secondary to supply demand mismatch demand ischemia in the setting of bacteremia, anemia and underlying CAD. Continue low-dose aspirin 81 mg p.o. daily for now. Atorvastatin should be continued as well as his isosorbide, carvedilol. Continue conservative therapy. Will continue to hold eliquis due to Hgb, possible HD catheter placement. <HA Melara - Last Filed: 06/15/21 16:53> (2) Elevated troponin: Code(s): R77.8 - Other specified abnormalities of plasma proteins <ADELITA MelaraC - Last Filed: 06/15/21 16:53> Status: Acute <HA Melara - Last Filed: 06/15/21 16:53> Assessment and Plan: As above. <HA Melara - Last Filed: 06/15/21 16:53> (3) Paroxysmal atrial flutter: Code(s): I48.92 - Unspecified atrial flutter <HA Melara - Last Filed: 06/15/21 16:53> Status: Acute <HA Melara - Last Filed: 06/15/21 16:53> Assessment and Plan: Status post cardioversion remotely. On anticoagulation previously. Holding Eliquis In sinus rhythm. <HA Melara - Last Filed: 06/15/21 16:53> (4) (HFpEF) heart failure with preserved ejection fraction: Code(s): I50.30 - Unspecified diastolic (congestive) heart failure <HA Melara - Last Filed: 06/15/21 16:53> Status: Acute <HA Melara - Last Filed: 06/15/21 16:53> Assessment and Plan: history of CHF with preserved ejection fraction. He appears volume overloaded on exam. Difficult to diurese with NICHELLE, hypotension... creatinine 6.3 today. Nephrology talking with family regarding possible HD. <HA Melara - Last Filed: 06/15/21 16:53> (5) Hypertension associated with diabetes: Code(s): E11.59 - Type 2 diabetes mellitus with other circulatory complications; I15.2 - Hypertension secondary to endocrine disorders <HA Melara - Last Filed: 06/15/21 16:53> Status: Acute <HA Melara - Last Filed: 06/15/21 16:53> Assessment and Plan: above goal <HA Melara - Last Filed: 06/15/21 16:53> (6) CKD (chronic kidney disease), stage IV: Code(s): N18.4 - Chronic kidney disease, stage 4 (severe) <HA Melara - Last Filed: 06/15/21 16:53> Status: Acute <HA Melara - Last Filed: 06/15/21 16:53> Assessment and Plan: Acute on chronic renal failure. Hold lisinopril for now. Nephrology following. <HA Melara - Last Filed: 06/15/21 16:53> (7) Chronic anticoagulation: Code(s): Z79.01 - intermediate frame tender (current) use of anticoagulants <HA Melara - Last Filed: 06/15/21 16:53> Status: Acute <HA Melara - Last Filed: 06/15/21 16:53> Assessment and Plan: On hold <HA Melara - Last Filed: 06/15/21 16:53> (8) Bright red blood per rectum: Code(s): K62.5 - Hemorrhage of anus and rectum <HA Melara - Last Filed: 06/15/21 16:53> Status: Acute <HA Melara - Last Filed: 06/15/21 16:53> Assessment and Plan: workup per hospitalist. Patient is also bacteremic with fevers. Antibiotics to be started per ID. <HA Melara - Last Filed: 06/15/21 16:53> Additional Plan I have seen and examined the patient and agree with the assessment and plan of the nurse practitioner. Troponin elevation likely sec
[2021-06-14] MEDS: BUMETANIDE INJ 1 MG/4 ML VIAL 2 MG IV PUSH (13:45)
--- NOTE | 2021-06-14 14:14 | WPDGIPROGNO ---
Progress Note: A&P Assessment and Plan (1) Bright red blood per rectum: Code(s): K62.5 - Hemorrhage of anus and rectum Status: Acute Assessment and Plan: no more blood in stool per RN he is on baby aspirin and now back low dose eliquis continue to monitor for signs of bleeding and trend h/h no plan to proceed with endoscopy- will follow from afar (2) Acute on chronic anemia: Code(s): D64.9 - Anemia, unspecified Status: Acute Assessment and Plan: probably multifactorial (sepsis, worsening renal failure, etc) (3) Septicemia: Code(s): A41.9 - Sepsis, unspecified organism Status: Acute Assessment and Plan: by ID on antibiotics (4) Acute on chronic kidney failure: Code(s): N17.9 - Acute kidney failure, unspecified; N18.9 - Chronic kidney disease, unspecified Status: Acute Assessment and Plan: noted worsening renal failure (5) Paroxysmal atrial flutter: Code(s): I48.92 - Unspecified atrial flutter Status: Acute (6) Chronic anticoagulation: Code(s): Z79.01 - care home (current) use of anticoagulants Status: Acute Assessment and Plan: monitor for signs of bleeding now that he is back on it (7) Non-STEMI (non-ST elevated myocardial infarction): Code(s): I21.4 - Non-ST elevation (NSTEMI) myocardial infarction Status: Acute Assessment and Plan: treated medically by cardiology Subjective Date/time seen: 06/14/21 14:14 Interval history: today he is more sleepy, son is at bedside. RN says that no gib Review of Systems Review of Systems: All systems reviewed & are unremarkable except as noted in HPI and below Exam Narrative: Exam Narrative: Const: General: comfortable; No in distress or confusion Other: more sleepy today, frail elderly HENMT: General nose exam: Normal nares present Eyes: Sclera: sclerae normal Neck: Neck: supple and no JVD Carotids: bruit Chest: Other: no reproducible chest wall pain to palpation Resp: Effort & Inspection: normal respiratory effort ( increased respiratory effort) Auscultation: diminished lung sounds Cardio: Rate: regular rate Rhythm: regular rhythm GI: Inspection: normal to inspection GI Palp: Yes Soft to palpation and No Tenderness to palpation present (GI) Auscultation: normal bowel sounds Skin: General skin exam: no erythema Neuro: General: No confusion Cranial nerves: Yes Normal hearing present Extrem: General: edema ( very mild bilateral extremity edema) Psych: Thought content: No Suicidality present Objective Data Vital Signs Vital Signs: Vital Signs - 24 hr 06/13/21 16:00 06/13/21 18:00 06/13/21 20:00 Temperature 96.1 F L 97.7 F Pulse Rate 87 91 91 Respiratory Rate 20 22 H Blood Pressure 92/30 L 98/40 L Pulse Oximetry 96 95 06/13/21 22:00 06/13/21 23:30 06/14/21 00:00 Temperature 97.7 F Pulse Rate 94 90 88 Respiratory Rate 20 Blood Pressure 100/45 L Pulse Oximetry 96 96 06/14/21 02:00 06/14/21 04:00 06/14/21 05:00 Temperature 97.9 F 98.5 F Pulse Rate 84 88 68 Respiratory Rate 18 16 Blood Pressure 101/44 L 89/48 L Pulse Oximetry 98 97 06/14/21 06:00 06/14/21 08:00 06/14/21 10:00 Temperature 96.8 F L Pulse Rate 97 92 90 Respiratory Rate 22 H Blood Pressure 93/60 L Pulse Oximetry 94 06/14/21 12:00 Temperature 96.7 F L Pulse Rate 80 Respiratory Rate 28 H Blood Pressure 94/48 L Pulse Oximetry 97 Intake/Output Intake/Output: Intake & Output 06/11/21 06/12/21 06/13/21 06/14/21 23:59 23:59 23:59 23:59 Intake Total 1930 2050 390 290 Output Total 800 1150 350 50 Balance 1130 900 40 240 Meds/Results Medications: Active Medications Generic Name Dose Route Start Last Admin Trade Name Freq PRN Reason Stop Dose Admin Acetaminophen 1,000 mg 06/11/21 01:36 06/12/21 09:48 Acetaminophen 500 Mg Tablet PO 1,000 mg Q6H PRN Administration Mild Pain (
--- NOTE | 2021-06-14 14:43 | PM.IMPN ---
Progress Note: A&P Assessment and Plan (1) Hypoxia: Code(s): R09.02 - Hypoxemia Status: Acute Assessment and Plan: Try and keep O2SAT at 94% Not on oxygen at home the patient remains on oxygen at 4 L per nasal cannula. Patient had a chest x-ray yesterday which showed increased bilateral mid and lower lung infiltrates and/or atelectasis. Right greater than left since 06/19/2021. Small right pleural effusion is suggestion. Patient was given Lasix yesterday and a given 1 time dose of Lasix again today. The patient stated that he is breathing much better today. Continue with nebulizer treatment. The patient does have a history of COPD. Continue with Solu-Medrol. (2) Sepsis: Code(s): A41.9 - Sepsis, unspecified organism Status: Acute Assessment and Plan: Continue present management. Infectious disease has seen the patient. 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 (3) Cholelithiasis: Code(s): K80.20 - Calculus of gallbladder without cholecystitis without obstruction Status: Acute Assessment and Plan: Continue to monitor the patient does not have any abdominal tenderness or knee complaints of upper quadrant pain. CT of the abdomen was read as a follow. 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 The differential diagnosis includes pseudocyst, intraductal papillary mucinous neoplasm (IPMN), mucinous cystic neoplasm (MCN), and the less common serous cystadenoma and neuroendocrine tumor. 2: Cholelithiasis. 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 abdominal ultrasound was read as distended gallbladder with gallstones. No gallbladder wall thickening or sonographic Lopez sign to suggest acute cholecystitis. The patient is undergoing a HIDA scan today. (4) NICHELLE (acute kidney injury): Code(s): N17.9 - Acute kidney failure, unspecified Status: Acute Assessment and Plan: Continue to monitor Patient has stage 4 chronic kidney disease. The patient is undergoing a renal ultrasound today. Nephrology has been consulted. IV fluids have been discontinued due to possibility of fluid overload. (5) Acute on chronic kidney failure: Code(s): N17.9 - Acute kidney failure, unspecified; N18.9 - Chronic kidney disease, unspecified Status: Acute Assessment and Plan: Continue to monitor Patient is getting a renal ultrasound performed today. The patient appears to be at his baseline. Nephrology is following. (6) Non-STEMI (non-ST elevated myocardial infarction): Code(s): I21.4 - Non-ST elevation (NSTEMI) myocardial infarction Status: Acute Assessment and Plan: Stable Continue to monitor Cardiology is following. it is uncertain if his related to plaque rupture or secondary to supply demand mismatch demand ischemia in the setting of bacteremia, anemia and underlying coronary artery disease. 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 Atorvastatin continued, isosorbide Currently on hold Most likely due to low blood pressure. Coreg Continued.. Continue conservative therapy resume Eliquis when okay with GI. (7) Hypertensive heart disease with CHF: Code(s): I11.0 - Hypertensive heart disease with heart failure Status: Acute Assessment and Plan: Continue to monitor Norvasc is currently on hold. Coreg has been continued. Isosorbide. Patient's blood pressure still in the soft side please continue to monitor. (8) Mixed hyperlipidemia due to type 2 diabetes mellitus: Code(s): E11.69 - Type 2 diabetes mellitus with other specified complication; E78.2 - Mixed hyperlipidemia Status: Acute Assessment and Plan: Continue with atorvastatin (9) Paroxysmal atrial flutter: Code(s): I48.92 - Unspecified atrial flutter Status: Acute Ass
--- NOTE | 2021-06-14 15:03 | PCOTNOTE ---
Attempted to see patient twice this date, however patient too tired to participate in functional OT.
[2021-06-14 17:15] LABS: Glucose Point of Care 218 mg/dl (65-105)
--- NOTE | 2021-06-14 17:23 | P.PNNP_ITS ---
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 (2) Chronic kidney disease, stage IV (severe): Code(s): N18.4 - Chronic kidney disease, stage 4 (severe) Status: Chronic Assessment and Plan: * unclear baseline * but suspect this degree of CKD based the fact he attended renal/dialysis education a few years ago * follow trend for now (3) Sepsis: Code(s): A41.9 - Sepsis, unspecified organism Status: Acute Assessment and Plan: * blood culture with Pasteurella multocida * Infectious Disease following * continue antibiotics * follow repeat cultures (4) Non-STEMI (non-ST elevated myocardial infarction): Code(s): I21.4 - Non-ST elevation (NSTEMI) myocardial infarction Status: Acute Assessment and Plan: * as noted by trend of troponins * Cardiology following * related to plaque rupture or secondary to supply demand mismatch ischemia in the setting of bacteremia/anemia/underlying CAD(?) (5) Diastolic heart failure: Code(s): I50.30 - Unspecified diastolic (congestive) heart failure Status: Acute Assessment and Plan: * issues with volume overload since admission (likely worsened by #1) * agree with PRN IV diuretics * if limited response with diuretics, this may push the need for dialysis (6) Anemia: Code(s): D64.9 - Anemia, unspecified Status: Acute Assessment and Plan: * due to acute illness and CKD * follow trend of H/H (7) Diabetes: Code(s): E11.9 - Type 2 diabetes mellitus without complications Status: Chronic Assessment and Plan: * follow accuchecks * glycemic control Long and extensive discussion (> 20 minutes) with patient and son regarding worsening renal dysfunction and the possible need for renal replacement therapy/dialysis if his kidney function continues to deteriorate. Will continue to follow. Subjective Date/time seen: 06/14/21 17:23 Son at bedside trying to help patient with his dinner at the time of my visit; renal function continues to worsen despite maximum medical therapy - discussed with patient and son my concerns that he may require renal replacement therapy/dialysis. Exam Narrative: Exam Narrative: General: ill appearing male in NAD Heart: normal S1 and S2; no rub Lungs: decreased at bases Abdomen: soft, nontender, nondistended, positive bowel sounds Extremities: no cyanosis or clubbing; 1+ edema Skin: warm and dry Objective Data Vital Signs Vital Signs: Vital Signs Temp Pulse Resp BP Pulse Ox 06/14/21 16:00 36.2 C L 80 24 H 106/37 L 93 06/14/21 15:13 97/36 L 06/14/21 12:00 35.9 C L 80 28 H 94/48 L 97 06/14/21 10:00 90 06/14/21 08:00 36.0 C L 92 22 H 93/60 L 94 06/14/21 06:00 97 06/14/21 05:0
--- NOTE | 2021-06-14 17:23 | PM.PNNEP ---
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 (2) Chronic kidney disease, stage IV (severe): Code(s): N18.4 - Chronic kidney disease, stage 4 (severe) Status: Chronic Assessment and Plan: unclear baseline but suspect this degree of CKD based the fact he attended renal/dialysis education a few years ago follow trend for now (3) Sepsis: Code(s): A41.9 - Sepsis, unspecified organism Status: Acute Assessment and Plan: blood culture with Pasteurella multocida Infectious Disease following continue antibiotics follow repeat cultures (4) Non-STEMI (non-ST elevated myocardial infarction): Code(s): I21.4 - Non-ST elevation (NSTEMI) myocardial infarction Status: Acute Assessment and Plan: as noted by trend of troponins Cardiology following related to plaque rupture or secondary to supply demand mismatch ischemia in the setting of bacteremia/anemia/underlying CAD(?) (5) Diastolic heart failure: Code(s): I50.30 - Unspecified diastolic (congestive) heart failure Status: Acute Assessment and Plan: issues with volume overload since admission (likely worsened by #1) agree with PRN IV diuretics if limited response with diuretics, this may push the need for dialysis (6) Anemia: Code(s): D64.9 - Anemia, unspecified Status: Acute Assessment and Plan: due to acute illness and CKD follow trend of H/H (7) Diabetes: Code(s): E11.9 - Type 2 diabetes mellitus without complications Status: Chronic Assessment and Plan: follow accuchecks glycemic control Long and extensive discussion (> 20 minutes) with patient and son regarding worsening renal dysfunction and the possible need for renal replacement therapy/dialysis if his kidney function continues to deteriorate. Will continue to follow. Subjective Date/time seen: 06/14/21 17:23 Son at bedside trying to help patient with his dinner at the time of my visit; renal function continues to worsen despite maximum medical therapy - discussed with patient and son my concerns that he may require renal replacement therapy/dialysis. Exam Narrative: Exam Narrative: General: ill appearing male in NAD Heart: normal S1 and S2; no rub Lungs: decreased at bases Abdomen: soft, nontender, nondistended, positive bowel sounds Extremities: no cyanosis or clubbing; 1+ edema Skin: warm and dry Objective Data Vital Signs Vital Signs: Vital Signs Temp Pulse Resp BP Pulse Ox 06/14/21 16:00 36.2 C L 80 24 H 106/37 L 93 06/14/21 15:13 97/36 L 06/14/21 12:00 35.9 C L 80 28 H 94/48 L 97 06/14/21 10:00 90 06/14/21 08:00 36.0 C L 92 22 H 93/60 L 94 06/14/21 06:00 97 06/14/21 05:00 36.9 C 68 16 89/48 L 97 06/14/21 04:00 36.6 C 88 18 101/44 L 98 06/14/21 02:00 84 06/14/21 00:00 88 96 06/13/21 23:30 36.5 C 90 20 100/45 L 96 06/13/21 22:00 94 06/13/21 20:00 36.5 C 91 22 H 98/40 L 95 06/13/21 18:00 91 Intake/Output Intake/Output: Intake & Output 06/11/21 06/12/21 06/13/21 06/14/21 23:59 23:59 23:59 23:59 Intake Total 1930 2050 390 410 Output Total 800 1150 350 50 Balance 1130 900 40 360 Meds/Results Medications: Active Medications Generic Name Dose Route Start Last Admin Trade Name Georges Anthony
[2021-06-14 20:09] LABS: Glucose Point of Care 211 mg/dl (65-105)
[2021-06-14] MEDS: ACETAMINOPHEN 500 MG TABLET 1000 MG PO (20:21)
[2021-06-14] MEDS: INSULIN GLARGINE (*BKC) 100 UNITS/ML 18 UNITS SUB-Q (20:22)
[2021-06-15] VITALS (18 sets, daily range): BP systolic 94–120; BP diastolic 42–65; PULSE 69–86; RESP 16–24; TEMP 36.2–36.6; O2SAT 92–100
[2021-06-15 05:12] LABS: Hematocrit 26.1 % (42.0-52.0); Mean Corpuscular HGB Conc 30.7 g/dl (32-36); Mean Corpuscular Hemoglobin 30.3 pg (26-34); Mean Corpuscular Volume 98.9 fl (80-100); Mean Platelet Volume 10.4 fl (7.4-10.4); Platelet Count Result 103 k/mm3 (150-375); Red Blood Count 2.64 M/mm3 (4.6-6.20); Red Cell Distribution Width 13.6 % (11.5-14.5); White Blood Count 10.2 K/mm3 (4.5-10.0)
[2021-06-15 05:39] LABS: Alanine Aminotransferase 39 U/L (4-50); Albumin Level 2.8 g/dL (3.5-5.1); Alkaline Phosphatase 61 U/L (38-126); Anion Gap 14 mmol/L (8-16); Aspartate Amino Transferase 21 U/L (17-59); Bilirubin,Total 0.4 mg/dL (0.2-1.3); Calcium 7.9 mg/dL (8.4-10.2); Carbon Dioxide 14 mmol/L (22-30); Chloride 110 mmol/L (98-107); Estimated CRCL calculation 8 ml/min; Estimated Glomerular Filt Rate 8; Glucose 206 mg/dL (75-110); Magnesium 2.2 mg/dL (1.6-2.3); Phosphorus 9.4 mg/dL (2.5-4.5); Potassium 5.3 mmol/L (3.4-5.0); Sodium 138 mmol/L (137-145)
[2021-06-15 05:54] LABS: Blood Urea Nitrogen 146 mg/dL (9-20)
[2021-06-15 08:25] LABS: Glucose Point of Care 183 mg/dl (65-105)
[2021-06-15] MEDS: cilostazoL 100 MG TABLET PO ×2 (08:36→16:47)
[2021-06-15] MEDS: ASPIRIN 81 MG CHEWABLE TABLET PO (08:37)
[2021-06-15] MEDS: carvediloL 25 MG TABLET PO (08:37)
[2021-06-15] MEDS: ATORVASTATIN 40 MG TABLET PO (08:38)
[2021-06-15] MEDS: guaiFENesin 12 HR 600 MG TABCR PO (08:38)
[2021-06-15] MEDS: FINASTERIDE 5 MG TABLET PO (08:38)
[2021-06-15] MEDS: APIXABAN 2.5 MG TABLET PO (08:38)
[2021-06-15] MEDS: BRIMONIDINE TARTRATE 0.15% 5 ML OPHTH SOLN 1 DROP LEFT EYE ×2 (08:38→16:47)
[2021-06-15] MEDS: methylPREDNISolone SOD SUCC 125 MG VIAL 60 MG IV PUSH (08:39)
[2021-06-15] MEDS: cycloSPORINE 0.4 ML OPHTH SOLUTION 1 DROP EACH EYE ×2 (08:39→21:58)
[2021-06-15] MEDS: PANTOPRAZOLE SODIUM IV 40 MG VIAL IV PUSH ×2 (08:39→20:44)
--- NOTE | 2021-06-15 08:50 | PCOTNOTE ---
Attempted to see patient this am, however RN advised not to see due to decline in medical status.
--- NOTE | 2021-06-15 11:25 | PM.IMPN ---
Progress Note: A&P Assessment and Plan (1) Hypoxia: Code(s): R09.02 - Hypoxemia Status: Acute Assessment and Plan: Try and keep O2SAT at 94% Not on oxygen at home the patient remains on oxygen at 4 L per nasal cannula. Patient had a chest x-ray yesterday which showed increased bilateral mid and lower lung infiltrates and/or atelectasis. Right greater than left since 06/19/2021. Small right pleural effusion is suggestion. Patient was given Lasix yesterday and a given 1 time dose of Lasix again today. The patient stated that he is breathing much better today. Continue with nebulizer treatment. The patient does have a history of COPD. Continue with Solu-Medrol. (2) Sepsis: Code(s): A41.9 - Sepsis, unspecified organism Status: Acute Assessment and Plan: THERE HAS BEEN NO A WORSENING OF PATIENT'S CONDITION OVERNIGHT PROGNOSIS IS GUARDED HAD DISCUSSION WITH SON AT BEDSIDE IS STILL WANTING HEMODIALYSIS Infectious disease has seen the patient. 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 (3) Cholelithiasis: Code(s): K80.20 - Calculus of gallbladder without cholecystitis without obstruction Status: Acute Assessment and Plan: Continue to monitor the patient does not have any abdominal tenderness or knee complaints of upper quadrant pain. CT of the abdomen was read as a follow. 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 The differential diagnosis includes pseudocyst, intraductal papillary mucinous neoplasm (IPMN), mucinous cystic neoplasm (MCN), and the less common serous cystadenoma and neuroendocrine tumor. 2: Cholelithiasis. 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 abdominal ultrasound was read as distended gallbladder with gallstones. No gallbladder wall thickening or sonographic Lopez sign to suggest acute cholecystitis. The patient is undergoing a HIDA scan today. (4) NICHELLE (acute kidney injury): Code(s): N17.9 - Acute kidney failure, unspecified Status: Acute Assessment and Plan: WORSENING PLAN FOR HEMODIALYSIS Continue to monitor Patient has stage 4 chronic kidney disease. The patient is undergoing a renal ultrasound today. Nephrology has been consulted. IV fluids have been discontinued due to possibility of fluid overload. (5) Acute on chronic kidney failure: Code(s): N17.9 - Acute kidney failure, unspecified; N18.9 - Chronic kidney disease, unspecified Status: Acute Assessment and Plan: Continue to monitor Patient is getting a renal ultrasound performed today. The patient appears to be at his baseline. Nephrology is following. (6) Non-STEMI (non-ST elevated myocardial infarction): Code(s): I21.4 - Non-ST elevation (NSTEMI) myocardial infarction Status: Acute Assessment and Plan: Stable Continue to monitor Cardiology is following. it is uncertain if his related to plaque rupture or secondary to supply demand mismatch demand ischemia in the setting of bacteremia, anemia and underlying coronary artery disease. 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 Atorvastatin continued, isosorbide Currently on hold Most likely due to low blood pressure. Coreg Continued.. Continue conservative therapy resume Eliquis when okay with GI. (7) Hypertensive heart disease with CHF: Code(s): I11.0 - Hypertensive heart disease with heart failure Status: Acute Assessment and Plan: Continue to monitor Norvasc is currently on hold. Coreg has been continued. Isosorbide. Patient's blood pressure still in the soft side please continue to monitor. (8) Mixed hyperlipidemia due to type 2 diabetes mellitus: Code(s): E11.69 - Type 2 diabetes mellitus with other specified complication; E78.2 - Mixed hyperlipidemia Status: Acute Assessmen
[2021-06-15 12:15] LABS: Glucose Point of Care 190 mg/dl (65-105)
[2021-06-15] MEDS: IPRATROPIUM BR 0.02% INH SOLN 0.5 MG/2.5 ML VIAL INHALATION (13:07)
[2021-06-15] MEDS: ALBUTEROL SULFATE NEB 2.5 MG/0.5 ML INH 5 MG INHALATION (13:08)
--- NOTE | 2021-06-15 13:09 | PCPTNOTE ---
Informed by BRANNON patient unable to be seen for therapy today per RN.
[2021-06-15 16:16] LABS: Glucose Point of Care 187 mg/dl (65-105)
--- NOTE | 2021-06-15 16:50 | PM.PNNEP ---
Progress Note: A&P Assessment and Plan (1) NICHELLE (acute kidney injury): Code(s): N17.9 - Acute kidney failure, unspecified Status: Acute Assessment and Plan: likely secondary to ATN from: - sepsis/infection - relative hypotension - ongoing GODFREY-I/diuretic/BP medication use prior to admission - prerenal factors (from vomiting) CT imaging make no mention of obstruction with regard to kidneys urine lytes c/w prerenal azotemia and urine eosinophils negative given his ongoing deterioration in kidney function associated with hyperkalemia, suspected uremia, and metabolic acidosis, the next step is dialysis if family is agreeable (2) Chronic kidney disease, stage IV (severe): Code(s): N18.4 - Chronic kidney disease, stage 4 (severe) Status: Chronic Assessment and Plan: unclear baseline but suspect this degree of CKD based the fact he attended renal/dialysis education a few years ago follow trend for now (3) Sepsis: Code(s): A41.9 - Sepsis, unspecified organism Status: Acute Assessment and Plan: blood culture with Pasteurella multocida Infectious Disease following continue antibiotics follow repeat cultures (4) Non-STEMI (non-ST elevated myocardial infarction): Code(s): I21.4 - Non-ST elevation (NSTEMI) myocardial infarction Status: Acute Assessment and Plan: as noted by trend of troponins Cardiology following related to plaque rupture or secondary to supply demand mismatch ischemia in the setting of bacteremia/anemia/underlying CAD(?) (5) Diastolic heart failure: Code(s): I50.30 - Unspecified diastolic (congestive) heart failure Status: Acute Assessment and Plan: issues with volume overload since admission (likely worsened by #1) agree with PRN IV diuretics if limited response with diuretics, this may push the need for dialysis (6) Anemia: Code(s): D64.9 - Anemia, unspecified Status: Acute Assessment and Plan: due to acute illness and CKD follow trend of H/H (7) Diabetes: Code(s): E11.9 - Type 2 diabetes mellitus without complications Status: Chronic Assessment and Plan: follow accuchecks glycemic control Long and extensive discussion (> 20 minutes) with patient's son and daughter at bedside regarding patient's worsening renal function -- he is having issues with volume overload, hyperkalemia, metabolic acidosis and likely uremia; unfortunately, the only option to treat these issues is dialysis. However, given his current medical issues with NSTEMI and bacteremia coupled with his age, he might not tolerated hemodialysis. Furthermore, given his advanced CKD at baseline, initiation of dialysis may result in dialysis dependence as well. I discussed all these issues with his family and they will let me know what they decided what they want to do. Will continue to follow. Subjective Date/time seen: 06/15/21 16:50 Not as awake/alert as when I saw him yesterday; breathing seems a bit labored as well; discussed situation with patient's son and daughter at bedside extensively (see discussion below). Exam Narrative: Exam Narrative: General: ill appearing male laying in bed somewhat confused Heart: normal S1 and S2; no rub Lungs: decreased at bases Abdomen: soft, nontender, nondistended, positive bowel sounds Extremities: no cyanosis or clubbing; 1+ edema Skin: warm and intact Objective Data Vital Signs Vital Signs: Vital Signs Temp Pulse Resp BP Pulse Ox 06/15/21 16:00 36.2 C L 82 22 H 94/62 L 98 06/15/21 14:00 80 06/15/21 13:16 75 16 06/15/21 13:08 73 20 06/15/21 13:00 96 06/15/21 12:00 73 99 06/15/21 11:55 36.4 C 75 24 H 96/44 L 97 06/15/21 10:00 69 06/15/21 08:00 36.2 C L 78 22 H 105/42 L 99 06/15/21 06:00 77 06/15/21 0
[2021-06-15 20:22] LABS: Glucose Point of Care 229 mg/dl (65-105)
[2021-06-15] MEDS: INSULIN GLARGINE (*BKC) 100 UNITS/ML 18 UNITS SUB-Q (20:43)
[2021-06-16] VITALS (28 sets, daily range): BP systolic 84–112; BP diastolic 30–70; PULSE 63–97; RESP 12–24; TEMP 35.6–37; O2SAT 94–100; BMI 27.4
[2021-06-16 06:49] LABS: Hematocrit 26.2 % (42.0-52.0); Hemoglobin 7.9 g/dL (14.0-18.0); Mean Corpuscular HGB Conc 30.2 g/dl (32-36); Mean Corpuscular Hemoglobin 29.7 pg (26-34); Mean Corpuscular Volume 98.5 fl (80-100); Mean Platelet Volume 9.8 fl (7.4-10.4); Platelet Count Result 96 k/mm3 (150-375); Red Blood Count 2.66 M/mm3 (4.6-6.20); Red Cell Distribution Width 13.4 % (11.5-14.5); White Blood Count 10.8 K/mm3 (4.5-10.0)
[2021-06-16 07:14] LABS: Alanine Aminotransferase 34 U/L (4-50); Albumin Level 2.6 g/dL (3.5-5.1); Alkaline Phosphatase 52 U/L (38-126); Anion Gap 15 mmol/L (8-16); Aspartate Amino Transferase 17 U/L (17-59); Bilirubin,Total 0.6 mg/dL (0.2-1.3); Calcium 7.6 mg/dL (8.4-10.2); Carbon Dioxide 13 mmol/L (22-30); Chloride 108 mmol/L (98-107); Estimated CRCL calculation 6 ml/min; Estimated Glomerular Filt Rate 7; Glucose 171 mg/dL (75-110); Magnesium 2.1 mg/dL (1.6-2.3); Phosphorus 10.8 mg/dL (2.5-4.5); Potassium 5.2 mmol/L (3.4-5.0); Sodium 136 mmol/L (137-145)
[2021-06-16 07:42] LABS: Blood Urea Nitrogen 167 mg/dL (9-20)
[2021-06-16 08:34] LABS: Hepatitis B Surface Antigen Negative (Negative)
[2021-06-16 08:39] LABS: HAV RESULT Negative (Negative); Hepatitis B Core IgM Result Negative (Negative)
[2021-06-16 08:51] LABS: Hepatitis B Surface Anti Res Negative; Hepatitis C Virus Antibody Negative (Negative)
--- NOTE | 2021-06-16 08:53 | PCOTNOTE ---
Attempted to see patient this am, however unable to arouse for functional OT at this time.
[2021-06-16] MEDS: methylPREDNISolone SOD SUCC 125 MG VIAL 60 MG IV PUSH (09:14)
[2021-06-16] MEDS: BRIMONIDINE TARTRATE 0.15% 5 ML OPHTH SOLN 1 DROP LEFT EYE ×2 (09:15→21:50)
[2021-06-16] MEDS: PANTOPRAZOLE SODIUM IV 40 MG VIAL IV PUSH ×2 (09:15→21:51)
[2021-06-16] MEDS: cycloSPORINE 0.4 ML OPHTH SOLUTION 1 DROP EACH EYE ×2 (09:16→21:56)
[2021-06-16 09:50] LABS: Glucose Point of Care 174 mg/dl (65-105)
--- NOTE | 2021-06-16 11:30 | P.HPUP_ITS ---
History and Physical Update Update Date/Time: 06/16/21 11:[address] central venous catheter for dialysis. No consultation required or performed. Will proceed with placement of tunneled central venous catheter for dialysis under fluoroscopy in the operating room und er anesthesia today. History and Physical has been reviewed, including an updated exam of the patient. There are NO changes in the patient's condition. Risks, benefits, and alternatives have been discussed and questions answered. Patient agrees to proceed with procedure.
[2021-06-16 13:10] LABS: Glucose Point of Care 153 mg/dl (65-105)
--- NOTE | 2021-06-16 13:29 | P.PNNP_ITS ---
Progress Note: A&P Assessment and Plan (1) NICHELLE (acute kidney injury): Code(s): N17.9 - Acute kidney failure, unspecified Status: Acute Assessment and Plan: * likely secondary to ATN from: - sepsis/infection - relative hypotension - ongoing GODFREY-I/diuretic/BP medication use prior to admission - prerenal factors (from vomiting) * CT imaging make no mention of obstruction with regard to kidneys * urine lytes c/w prerenal azotemia and urine eosinophils negative * given his ongoing deterioration in kidney function associated with hyperkalemia, suspected uremia, and metabolic acidosis, the next step is dialysis which the family is agreeable to after my discussion with them yesterday evening (2) Chronic kidney disease, stage IV (severe): Code(s): N18.4 - Chronic kidney disease, stage 4 (severe) Status: Chronic Assessment and Plan: * unclear baseline * but suspect this degree of CKD based the fact he attended renal/dialysis education a few years ago * follow trend for now (3) Sepsis: Code(s): A41.9 - Sepsis, unspecified organism Status: Acute Assessment and Plan: * blood culture with Pasteurella multocida * Infectious Disease following * continue antibiotics * follow repeat cultures (4) Non-STEMI (non-ST elevated myocardial infarction): Code(s): I21.4 - Non-ST elevation (NSTEMI) myocardial infarction Status: Acute Assessment and Plan: * as noted by trend of troponins * Cardiology following * related to plaque rupture or secondary to supply demand mismatch ischemia in the setting of bacteremia/anemia/underlying CAD(?) (5) Diastolic heart failure: Code(s): I50.30 - Unspecified diastolic (congestive) heart failure Status: Acute Assessment and Plan: * issues with volume overload since admission (likely worsened by #1) * agree with PRN IV diuretics * if limited response with diuretics, this may push the need for dialysis (6) Anemia: Code(s): D64.9 - Anemia, unspecified Status: Acute Assessment and Plan: * due to acute illness and CKD * follow trend of H/H (7) Diabetes: Code(s): E11.9 - Type 2 diabetes mellitus without complications Status: Chronic Assessment and Plan: * follow accuchecks * glycemic control Discussed case with daughter at beside regarding plan of care; discussed case with primary toxicologist, Dr Oseguera ([facility]), earlier today by phone as well. Will continue to follow. Subjective Date/time seen: 06/16/21 13:29 Not very responsive at the time of my visit; noted plans for HD catheter placement this afternoon and dialysis to follow; daughter at bedside and we discussed the situation; decreased urine output noted as well. Exam Narrative: Exam Narrative: General: ill appearing male laying in bed; confused/non-verbal Heart: normal S1 and S2; no rub Lungs: decreased at bases with a few crackles Abdomen: soft, nontender, nondistended, positive bowel sounds Extremities: no cyanosis or clubbing; 1+ edema Skin: warm and intact Objective Data Vital Signs Vital Signs: Vital Signs Temp Pulse Resp BP Pulse Ox 06/16/21 12:00 35.6 C L 63 20 101/37 L 100 06/16/21 09:12 76 06/16/21 08:00 35.7 C L 76 24 H 101/38 L 98 06/16/21 06:00 77
--- NOTE | 2021-06-16 13:29 | PM.PNNEP ---
Progress Note: A&P Assessment and Plan (1) NICHELLE (acute kidney injury): Code(s): N17.9 - Acute kidney failure, unspecified Status: Acute Assessment and Plan: likely secondary to ATN from: - sepsis/infection - relative hypotension - ongoing GODFREY-I/diuretic/BP medication use prior to admission - prerenal factors (from vomiting) CT imaging make no mention of obstruction with regard to kidneys urine lytes c/w prerenal azotemia and urine eosinophils negative given his ongoing deterioration in kidney function associated with hyperkalemia, suspected uremia, and metabolic acidosis, the next step is dialysis which the family is agreeable to after my discussion with them yesterday evening (2) Chronic kidney disease, stage IV (severe): Code(s): N18.4 - Chronic kidney disease, stage 4 (severe) Status: Chronic Assessment and Plan: unclear baseline but suspect this degree of CKD based the fact he attended renal/dialysis education a few years ago follow trend for now (3) Sepsis: Code(s): A41.9 - Sepsis, unspecified organism Status: Acute Assessment and Plan: blood culture with Pasteurella multocida Infectious Disease following continue antibiotics follow repeat cultures (4) Non-STEMI (non-ST elevated myocardial infarction): Code(s): I21.4 - Non-ST elevation (NSTEMI) myocardial infarction Status: Acute Assessment and Plan: as noted by trend of troponins Cardiology following related to plaque rupture or secondary to supply demand mismatch ischemia in the setting of bacteremia/anemia/underlying CAD(?) (5) Diastolic heart failure: Code(s): I50.30 - Unspecified diastolic (congestive) heart failure Status: Acute Assessment and Plan: issues with volume overload since admission (likely worsened by #1) agree with PRN IV diuretics if limited response with diuretics, this may push the need for dialysis (6) Anemia: Code(s): D64.9 - Anemia, unspecified Status: Acute Assessment and Plan: due to acute illness and CKD follow trend of H/H (7) Diabetes: Code(s): E11.9 - Type 2 diabetes mellitus without complications Status: Chronic Assessment and Plan: follow accuchecks glycemic control Discussed case with daughter at beside regarding plan of care; discussed case with primary credit department manager, Dr Oseguera ([facility]), earlier today by phone as well. Will continue to follow. Subjective Date/time seen: 06/16/21 13:29 Not very responsive at the time of my visit; noted plans for HD catheter placement this afternoon and dialysis to follow; daughter at bedside and we discussed the situation; decreased urine output noted as well. Exam Narrative: Exam Narrative: General: ill appearing male laying in bed; confused/non-verbal Heart: normal S1 and S2; no rub Lungs: decreased at bases with a few crackles Abdomen: soft, nontender, nondistended, positive bowel sounds Extremities: no cyanosis or clubbing; 1+ edema Skin: warm and intact Objective Data Vital Signs Vital Signs: Vital Signs Temp Pulse Resp BP Pulse Ox 06/16/21 12:00 35.6 C L 63 20 101/37 L 100 06/16/21 09:12 76 06/16/21 08:00 35.7 C L 76 24 H 101/38 L 98 06/16/21 06:00 77 06/16/21 04:00 36.6 C 78 20 108/70 95 06/16/21 02:00 76 06/16/21 00:00 36.5 C 83 19 101/68 94 06/15/21 22:00 85 06/15/21 21:36 94 06/15/21 20:00 80 99 06/15/21 19:46 36.4 C 77 20 100/65 93 06/15/21 18:00 78 06/15/21 16:00 36.2 C L 79 22 H 94/62 L 99 06/15/21 14:00 80 Intake/Output Intake/Output: Intake & Output 06/13/21 06/14/21 06/15/21 06/16/21 23:59 23:59 23:59 23:59 Intake Total 390 780 590 25 Output Total 350 200 50 0 Balance 40 580 540 25 Meds/Results Medications: Active Medicati
[2021-06-16] MEDS: SODIUM CHLORIDE 0.9% IV 500 ML 30 ML IV CONT (13:30)
--- NOTE | 2021-06-16 13:37 | PCNSR ---
On 06/16/21, the student,Melissa Nath, provided care and [facility]. I have reviewed the student's documentation and agree with the findings.
--- NOTE | 2021-06-16 13:52 | WPDANESEPPF ---
Anes - Initial Pre Proc Eval Procedure: Operation Date: 06/16/21 14:30 Proposed Procedures p Insertion Tunneled Dialysis Catheter - Saurav Lopez MD Date/Time: 06/16/21 13:52 Surgeon: Tanesha Graham PA-C Pre Op Diagnosis: Fever of Unknown Origin,Elevated Troponin,Acute Re Patient Data Age: 86 Gender: M Height: 1.73 m Weight: 82 kg Last Vital Signs Temp 35.6 C L 06/16/21 12:00 Pulse 63 06/16/21 12:00 Resp 20 06/16/21 12:00 BP 101/37 L 06/16/21 12:00 Pulse Ox 100 06/16/21 12:00 Allergies Allergy/AdvReac Type Severity Reaction Status Date / Time Sulfa (Sulfonamide Allergy Unknown Hives Verified 06/09/21 18:44 Antibiotics) Home Medications Medication Instructions Recorded Confirmed Type Glucosamine Chondroitin 1 tablet PO BID 06/09/21 06/10/21 History Novolog Flexpen U-100 Insulin 18 units SUBCUT TIDWM 06/09/21 06/10/21 History amlodipine 5 mg DAILY 06/09/21 06/10/21 History apixaban [Eliquis] 2.5 mg PO BID 06/09/21 06/10/21 History aspirin 81 mg PO DAILY 06/09/21 06/10/21 History atorvastatin 40 mg PO DAILY 06/09/21 06/10/21 History bimatoprost [Lumigan] 1 drp EACH EYE HS 06/09/21 06/10/21 History carvedilol [Coreg] 25 mg PO BID 06/09/21 06/10/21 History doxazosin 2 mg PO HS 06/09/21 06/10/21 History furosemide 120 mg PO BID 06/09/21 06/10/21 History insulin glargine [Lantus Solostar 22 unit SUBCUT QAM 06/09/21 06/10/21 History U-100 Insulin] isosorbide mononitrate 30 mg PO DAILY 06/09/21 06/10/21 History lisinopril 40 mg PO DAILY 06/09/21 06/10/21 History mcnaezordyjb-gjzgpstp-aubisn 1 tablet PO DAILY 06/09/21 06/10/21 History [Centrum Silver] omega 1-bmn-xhe-fish oil [Fish Oil] 1 cap PO TIDWM 06/09/21 06/10/21 History artificial tears solution 1 drp OPHTHALMIC (EYE) 4-6XD PRN 06/10/21 06/10/21 History brimonidine 1 drp LEFT EYE BID 06/10/21 06/10/21 History cilostazol 100 mg PO BID 06/10/21 06/10/21 History cyclosporine [Restasis] 1 drp EACH EYE Q12H 06/10/21 06/10/21 History finasteride 5 mg PO DAILY 06/10/21 06/10/21 History Laboratory Tests 06/15/21 06/15/21 06/16/21 15:59 19:43 06:33 WBC 10.8 K/mm3 H K/mm3 (4.5-10.0) RBC 2.66 M/mm3 L M/mm3 (4.6-6.20) Hgb 7.9 g/dL L g/dL (14.0-18.0) Hct 26.2 % L % (42.0-52.0) MCV 98.5 fl fl (80-100) MCH 29.7 pg pg (26-34) MCHC 30.2 g/dl L g/dl (32-36) RDW 13.4 % % (11.5-14.5) Plt Count 96 k/mm3 L k/mm3 (150-375) MPV 9.8 fl fl (7.4-10.4) Sodium Potassium Chloride Carbon Dioxide Anion Gap BUN Creatinine Estim Creat Clear Calc Estimated GFR Glucose POC Capillary Glucose 187 mg/dl H mg/dl 229 mg/dl H mg/dl (65-105) (65-105) Calcium Phosphorus Magnesium Total Bilirubin AST ALT Alkaline Phosphatase Total Protein Albumin Hepatitis A IgM Ab Hep Bs Antigen Hep Bs Antibody Hep B Core IgM Ab Hepatitis C Ab Screen Blood Type Antibody Screen 06/16/21 06/16/21 06/16/21 06:33 06:33 08:11 WBC RBC Hgb Hct MCV MCH MCHC RDW Plt Count MPV Sodium 136 mmol/L L mmol/L (137-145) Potassium 5.2 mmol/L H mmol/L (3.4-5.0) Chloride 108 mmol/L H mmol/L (98-107) Carbon Dioxide 13 mmol/L L mmol/L (22-30) Anion Gap 15 mmol/L mmol/L (8-16) BUN 167 mg/dL H D mg/dL (9-20) Creatinine 7.50 mg/dL H mg/dL (0.7-1.3) Estim Creat Clear Calc 6 ml/min ml/min Estimated GFR 7 L (59 - ) Glucos
[2021-06-16] MEDS: ceFAZolin 2 GM/D5W 50 ML 2 GM/50 ML BAG IVPB (14:00)
[2021-06-16] MEDS: LIDO 1%/EPINEPHRINE 1:100,000 20 ML VIAL 5 ML INFILTRATE (14:26)
[2021-06-16] MEDS: HEPARIN SODIUM, PORCINE 10,000 UNITS/10 ML VIAL 4000 UNITS IRRIGATION (14:29)
--- NOTE | 2021-06-16 15:18 | P.PNIM_ITS ---
Progress Note: A&P Assessment and Plan (1) Hypoxia: Code(s): R09.02 - Hypoxemia Status: Acute Assessment and Plan: * Try and keep O2SAT at 94% * Not on oxygen at home * remains on oxygen at 4 L per nasal cannula. Patient had a * chest x-ray showed increased bilateral mid and lower lung infiltrates and/or atelectasis Right greater than left since 06/19/2021. Small right pleural effusion is suggestion. * Dialysis catheter placed (2) Sepsis: Code(s): A41.9 - Sepsis, unspecified organism Status: Acute Assessment and Plan: * THERE HAS BEEN NO A WORSENING OF PATIENT'S CONDITION OVERNIGHT * PROGNOSIS IS GUARDED * HAD DISCUSSION WITH SON AT BEDSIDE IS STILL WANTING HEMODIALYSIS * Infectious disease has seen the patient. 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 (3) Cholelithiasis: Code(s): K80.20 - Calculus of gallbladder without cholecystitis without obstruction Status: Acute Assessment and Plan: Continue to monitor the patient does not have any abdominal tenderness or knee complaints of upper quadrant pain. CT of the abdomen was read as a follow. 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 The differential diagnosis includes pseudocyst, intraductal papillary mucinous neoplasm (IPMN), mucinous cystic neoplasm (MCN), and the less common serous cystadenoma and neuroendocrine tumor. 2: Cholelithiasis. 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 abdominal ultrasound was read as distended gallbladder with gallstones. No gallbladder wall thickening or sonographic Lopez sign to suggest acute cholecystitis. The patient is undergoing a HIDA scan today. (4) NICHELLE (acute kidney injury): Code(s): N17.9 - Acute kidney failure, unspecified Status: Acute Assessment and Plan: * WORSENING PLAN FOR HEMODIALYSIS * BUN/Cr 167/7.50, Phos 10.8, K 5.2 * Continue to monitor * Patient has stage 4 chronic kidney disease. * renal ultrasound 8 mm left renal cyst. Otherwise normal kidneys without hydronephrosis. * Nephrology has been consulted. (5) Acute on chronic kidney failure: Code(s): N17.9 - Acute kidney failure, unspecified; N18.9 - Chronic kidney disease, unspecified Status: Acute Assessment and Plan: * See above * Plan for dialysis (6) Non-STEMI (non-ST elevated myocardial infarction): Code(s): I21.4 - Non-ST elevation (NSTEMI) myocardial infarction Status: Acute Assessment and Plan: * Stable * Continue to monitor * Cardiology is following. * it is uncertain if his related to plaque rupture or secondary to supply demand mismatch demand ischemia in the setting of bacteremia, anemia and underlying coronary artery disease. * history of CABG. * Atorvastatin continued, * isosorbide Currently on hold due to low blood pressure. * Coreg Continued.. * Continue conservative therapy resume Eliquis when okay with GI. (7) Hypertensive heart disease with CHF: Code(s): I11.0 - Hypertensive heart disease with heart failure Status: Acute Assessment and Plan: Continue to monitor Norvasc is currently on hold. Coreg has been continued. Isosorbide. Patient's blood pressure still in the soft side please continue to monitor. (8) Mixed hyperlipidemia due to type 2 diabetes mellitus: Code(s): E11.69 - Type 2 diabetes michael
--- NOTE | 2021-06-16 15:18 | PM.IMPN ---
Progress Note: A&P Assessment and Plan (1) Hypoxia: Code(s): R09.02 - Hypoxemia Status: Acute Assessment and Plan: Try and keep O2SAT at 94% Not on oxygen at home remains on oxygen at 4 L per nasal cannula. Patient had a chest x-ray showed increased bilateral mid and lower lung infiltrates and/or atelectasis Right greater than left since 06/19/2021. Small right pleural effusion is suggestion. Dialysis catheter placed (2) Sepsis: Code(s): A41.9 - Sepsis, unspecified organism Status: Acute Assessment and Plan: THERE HAS BEEN NO A WORSENING OF PATIENT'S CONDITION OVERNIGHT PROGNOSIS IS GUARDED HAD DISCUSSION WITH SON AT BEDSIDE IS STILL WANTING HEMODIALYSIS Infectious disease has seen the patient. 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 (3) Cholelithiasis: Code(s): K80.20 - Calculus of gallbladder without cholecystitis without obstruction Status: Acute Assessment and Plan: Continue to monitor the patient does not have any abdominal tenderness or knee complaints of upper quadrant pain. CT of the abdomen was read as a follow. 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 The differential diagnosis includes pseudocyst, intraductal papillary mucinous neoplasm (IPMN), mucinous cystic neoplasm (MCN), and the less common serous cystadenoma and neuroendocrine tumor. 2: Cholelithiasis. 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 abdominal ultrasound was read as distended gallbladder with gallstones. No gallbladder wall thickening or sonographic Lopez sign to suggest acute cholecystitis. The patient is undergoing a HIDA scan today. (4) NICHELLE (acute kidney injury): Code(s): N17.9 - Acute kidney failure, unspecified Status: Acute Assessment and Plan: WORSENING PLAN FOR HEMODIALYSIS BUN/Cr 167/7.50, Phos 10.8, K 5.2 Continue to monitor Patient has stage 4 chronic kidney disease. renal ultrasound 8 mm left renal cyst. Otherwise normal kidneys without hydronephrosis. Nephrology has been consulted. (5) Acute on chronic kidney failure: Code(s): N17.9 - Acute kidney failure, unspecified; N18.9 - Chronic kidney disease, unspecified Status: Acute Assessment and Plan: See above Plan for dialysis (6) Non-STEMI (non-ST elevated myocardial infarction): Code(s): I21.4 - Non-ST elevation (NSTEMI) myocardial infarction Status: Acute Assessment and Plan: Stable Continue to monitor Cardiology is following. it is uncertain if his related to plaque rupture or secondary to supply demand mismatch demand ischemia in the setting of bacteremia, anemia and underlying coronary artery disease. history of CABG. Atorvastatin continued, isosorbide Currently on hold due to low blood pressure. Coreg Continued.. Continue conservative therapy resume Eliquis when okay with GI. (7) Hypertensive heart disease with CHF: Code(s): I11.0 - Hypertensive heart disease with heart failure Status: Acute Assessment and Plan: Continue to monitor Norvasc is currently on hold. Coreg has been continued. Isosorbide. Patient's blood pressure still in the soft side please continue to monitor. (8) Mixed hyperlipidemia due to type 2 diabetes mellitus: Code(s): E11.69 - Type 2 diabetes mellitus with other specified complication; E78.2 - Mixed hyperlipidemia Status: Acute Assessment and Plan: Continue with atorvastatin (9) Paroxysmal atrial flutter: Code(s): I48.92 - Unspecified atrial flutter Status: Acute Assessment and Plan: Sinus rhythm. His Eliquis is on hold. Having frequent PVCs. Check his magnesium. (10) (HFpEF) heart failure with preserved ejection fraction: Code(s): I50.30 - Unspecifie
[2021-06-16 15:31] LABS: Glucose Point of Care 169 mg/dl (65-105)
--- NOTE | 2021-06-16 15:33 | P.OP_ITS ---
Procedure Note - Detailed Date of Procedure 06/16/21 Pre-op Diagnosis acute renal failure, inadequate venous access Post-op Diagnosis same Procedure Performed Placement left subclavian tunneled Dura Flow catheter under fluoroscopy Surgeon Saurav Lopez MD Instrumentation Designer Alok BUI Anesthesia MAC and local ( 0.5% Marcaine with epinephrine) Indications patient is an 86-year-old man who presented with sepsis and has developed acute on chronic renal failure. I was asked to urgently place a dialysis catheter by his clinic charge nurse so that he could have dialysis today. Findings Catheter tip in distal SVC at junction of right atrium Description of Procedure patient was taken to surgery and IV sedation was administered. The left subclavian left neck and left upper chest were prepped and draped. Local anesthesia was infiltrated under the left clavicle at its lateral 3rd. A single puncture was used to cannulate the left subclavian vein. A guidewire passed readily into the superior vena cava. The position was documented by C-arm fluoroscopy. Then using C-arm fluoroscopy, I used the guidewire to anticipate the length of catheter that we would need. Counter incisions were made on the left chest so that the catheter could be tunneled appropriately and then entered in the subclavian puncture site position. The catheter was passed retrograde from the counter incision on the lower left chest up to the incision at the exit of the guidewire. I then passed serial dilators over the guidewire under fluoroscopy. These passed easily and the large dilator with the sheath was then passed over the guidewire under fluoroscopy. I then removed the guidewire and the introducer. The dura flow catheter passed through the sheath without difficulty. It was positioned with the tip in the distal SVC at the right atrial junction. Both ports were checked. Each aspirated blood easily and flushed readily with heparin. Final flush of heparin was instilled into each port. I then closed each of the counter incisions with subcuticular interrupted 4 0 Vicryl. I sutured the catheter to the skin with 3 0 nylon. A sterile transparent dressing was placed. The patient was taken to recovery in good condition. Counts were correct x2. No complications were noted. By my review, post procedure chest x-ray showed the catheter to be in good position with no evidence of pneumothorax or other complication. Implants Number 32 Dura Flow dual lumen catheter Estimated Blood Loss 5 Urine Output 600 Drains No Packing No Pathology none sent Complications None Condition stable Disposition PACU
--- NOTE | 2021-06-16 15:46 | SUR.PHASEI ---
1530 sbar faxed floor notified
[2021-06-16] MEDS: MORPHINE SULFATE (*CRX) 2 MG/ML INJ 0.5 MG IV PUSH (16:03)
[2021-06-16] MEDS: EPOETIN ALFA-EPBX 10,000 UNITS/ML VIAL 10000 UNITS IV PUSH (16:45)
--- NOTE | 2021-06-16 20:51 | WPDINFPN2 ---
Progress Note: A&P Additional Plan 1. 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 Source of infection most likely cutaneous. Patient states that he is regularly in contact with his daughter's dog. Patient is currently on Zosyn day 7 of 7. Repeat blood cultures are negative. Okay to change to oral Augmentin 500 mg daily for 5 days. 2. Leukocytosis most likely secondary to ongoing bloodstream infection. [place] [address] [place] [address]. Repeat CBC with differential in am. 3. Acute on chronic kidney failure. With worsening of renal function. Patient is currently on dialysis. 4. Encephalopathy most likely secondary to metabolic with acute renal failure. Prognosis is poor. Patient is DNR as per nurse's Subjective Date/time seen: 06/16/21 20:51 Objective Data Vital Signs Vital Signs: Vital Signs - 24 hr 06/15/21 21:36 06/15/21 22:00 06/16/21 00:00 Temperature 36.5 C Pulse Rate 85 83 Respiratory Rate 19 Blood Pressure 101/68 Pulse Oximetry 94 94 06/16/21 02:00 06/16/21 04:00 06/16/21 06:00 Temperature 36.6 C Pulse Rate 76 78 77 Respiratory Rate 20 Blood Pressure 108/70 Pulse Oximetry 95 06/16/21 08:00 06/16/21 09:12 06/16/21 10:00 Temperature 35.7 C L Pulse Rate 76 76 77 Respiratory Rate 24 H Blood Pressure 101/38 L Pulse Oximetry 98 06/16/21 12:00 06/16/21 13:29 06/16/21 13:30 Temperature 35.6 C L 36.9 C Pulse Rate 63 77 79 Respiratory Rate 20 18 Blood Pressure 101/37 L 100/46 L Pulse Oximetry 100 98 06/16/21 14:55 06/16/21 15:10 06/16/21 15:30 Temperature 36.5 C Pulse Rate 77 77 77 Respiratory Rate 12 20 17 Blood Pressure 102/61 103/44 L 112/48 L Pulse Oximetry 99 98 98 06/16/21 15:45 06/16/21 16:00 06/16/21 16:15 Temperature 36.4 C Pulse Rate 78 75 Respiratory Rate 20 22 H Blood Pressure 110/44 L 103/45 L Pulse Oximetry 97 98 06/16/21 16:30 06/16/21 17:00 06/16/21 17:30 Temperature Pulse Rate 75 87 92 Respiratory Rate Blood Pressure 101/45 L 94/48 L 110/59 L Pulse Oximetry 06/16/21 18:00 06/16/21 18:15 06/16/21 18:30 Temperature Pulse Rate 95 92 90 Respiratory Rate Blood Pressure 89/52 L 84/45 L 93/51 L Pulse Oximetry 06/16/21 18:45 06/16/21 19:00 06/16/21 19:15 Temperature 36.6 C Pulse Rate 82 93 97 Respiratory Rate 24 H Blood Pressure 100/56 L 92/54 L 102/54 L Pulse Oximetry Intake/Output Intake/Output: Intake & Output 06/13/21 06/14/21 06/15/21 06/16/21 23:59 23:59 23:59 23:59 Intake Total 390 780 590 225 Output Total 350 755 81 3658 Balance 40 109 388 -894 Meds/Results Medications: Active Medications Generic Name Dose Route Start Last Admin Trade Name Freq PRN Reason Stop Dose Admin Albuterol 5 mg 06/12/21 13:26 06/15/21 13:08 Albuterol Sulfate Neb 2.5 Mg/0.5 Ml Inh INHALATION 5 mg Q4HRT PRN Administration Wheezing or SOB Amlodipine Besylate 5 mg 06/11/21 09:00 06/12/21 09:51 Amlodipine Besylate 5 Mg Tablet PO 5 mg DAILY JULIA Administration Apixaban 2.5 mg 06/14/21 09:00 06/15/21 08:38 Apixaban 2.5 Mg Tablet PO 2.5 mg Q12HR JULIA Administration Aspirin 81 mg 06/11/21 08:00 06/16/21 09:12 Aspirin 81 Mg Chewable Tablet PO Not Given DAILY@0800 JULIA Atorvastatin Calcium 40 mg 06/11/21 09:00 06/16/21 09:12 Atorvastatin 40 Mg Tablet PO Not Given DAILY JULIA Brimonidine Tartrate 1 drop 06/10/21 17:00 06/16/21 09:15 Brimonidine Tartrate 0.15% 5 Ml Ophth Soln LEFT EYE 1 drop BID JULIA Administration Carvedilol 25 mg 06/10/21 21:00 06/16/21 09:12 Carvedilol 25 Mg Tablet PO Not Given Q12HR JULIA Cilostazol 100 mg 06/10/21 17:00 06/16/21 16:35 Cilostazol 100 Mg Tablet PO Not Given BIDWM JULIA Cyclosporine 1 drop 06/10/21 21:00 06/16/21 09:16 Cyclosporine 0.4 Ml Ophth Solution EACH EYE 1 drop Q12HR JULIA Administration Dextrose 12.5 gm 06/10/21 09:41
[2021-06-16 21:32] LABS: Glucose Point of Care 134 mg/dl (65-105)
[2021-06-16] MEDS: MORPHINE SULFATE (*CRX) 2 MG/ML INJ IV PUSH (23:12)
--- NOTE | 2021-06-16 23:40 | PC.NURSE ---
This patient, Nolan Bower, was transferred to [[id number] ] on 06/16/21 at 2340 for comfort care . Personal belongings sent with patient. Report given to [ Kervin]. Appropriate documentation sent with patient.
--- NOTE | 2021-06-16 23:58 | PM.EVENT ---
Event Note Event Note Event Note: the patient is declining and his respirations are labored. the patient is guppy breathinh, the patient is struggling to breate, i spoke with the son and the daughter about comfort care . they agreed to comfort care. the patient was moved to third floor and made comfort care
--- NOTE | 2021-06-17 00:11 | ADMGEN ---
This patient, Nolan Bower, was transferred to 3 Med Surg Room 303-01. Patient/family oriented to hospital policies and general routines including ID bracelet, bed and alarms, visiting hours, pain management, procedures, bathroom and other care routines, personal items, smoking policy, room service/diet, and visiting hours. Information on how to activate the Rapid Response Team has been discussed. Patient/Family are encouraged to report perceived risks to care and to ask questions if they do not understand what they are told or what they should do.
[2021-06-17] MEDS: LATANOPROST 0.005% OP SOLN 2.5 ML BTL 1 DROP EACH EYE (01:10)
[2021-06-17 06:40] LABS: Hematocrit 24.1 % (42.0-52.0); Hemoglobin 7.5 g/dL (14.0-18.0); Mean Corpuscular HGB Conc 31.1 g/dl (32-36); Mean Corpuscular Hemoglobin 30.1 pg (26-34); Mean Corpuscular Volume 96.8 fl (80-100); Mean Platelet Volume 10.4 fl (7.4-10.4); Platelet Count Result 103 k/mm3 (150-375); Red Blood Count 2.49 M/mm3 (4.6-6.20); Red Cell Distribution Width 13.2 % (11.5-14.5); White Blood Count 12.2 K/mm3 (4.5-10.0)
[2021-06-17 06:49] VITALS: BP 95/35; PULSE 86; RESP 16; TEMP 36.8; O2SAT 99
[2021-06-17 07:16] LABS: Alanine Aminotransferase 31 U/L (4-50); Albumin Level 2.7 g/dL (3.5-5.1); Alkaline Phosphatase 47 U/L (38-126); Anion Gap 11 mmol/L (8-16); Aspartate Amino Transferase 17 U/L (17-59); Bilirubin,Total 0.5 mg/dL (0.2-1.3); Blood Urea Nitrogen 102 mg/dL (9-20); Calcium 7.5 mg/dL (8.4-10.2); Carbon Dioxide 20 mmol/L (22-30); Chloride 106 mmol/L (98-107); Estimated CRCL calculation 9 ml/min; Estimated Glomerular Filt Rate 10; Glucose 106 mg/dL (65-110); Phosphorus 8.7 mg/dL (2.5-4.5); Potassium 4.6 mmol/L (3.4-5.0); Sodium 137 mmol/L (137-145)
--- NOTE | 2021-06-17 09:12 | PC.NURSE ---
tylenol given per Kervin Meier at 0546 this am.
[2021-06-17] MEDS: BRIMONIDINE TARTRATE 0.15% 5 ML OPHTH SOLN 1 DROP LEFT EYE ×2 (09:29→17:12)
[2021-06-17] MEDS: cycloSPORINE 0.4 ML OPHTH SOLUTION 1 DROP EACH EYE (09:30)
[2021-06-17] MEDS: PANTOPRAZOLE SODIUM IV 40 MG VIAL IV PUSH (09:31)
[2021-06-17] MEDS: SCOPOLAMINE 1.5 MG PATCH TRANSDERM (10:16)
[2021-06-17] MEDS: FUROSEMIDE INJ 40 MG/4 ML VIAL IV PUSH (10:16)
[2021-06-17 10:21] VITALS: O2SAT 99
[2021-06-17] MEDS: MORPHINE SULFATE (*CRX) 2 MG/ML INJ IV PUSH ×2 (11:00→15:42)
--- NOTE | 2021-06-17 11:31 | P.PNIM_ITS ---
Progress Note: A&P Assessment and Plan (1) Comfort measures only status: Code(s): Z51.5 - Encounter for palliative care Status: Acute Assessment and Plan: * Comfort measures initiated on last shift * hospice referral placed * morphine IV p.r.n. lorazepam IV p.r.n. * patient went need inpatient hospice * family involved and conversation of next steps was had. * Family conversation noted above (2) Hypoxia: Code(s): R09.02 - Hypoxemia Status: Acute Assessment and Plan: * Try and keep O2SAT at 94% * Not on oxygen at home * remains on oxygen at 4 L per nasal cannula. Patient had a * chest x-ray showed increased bilateral mid and lower lung infiltrates and/or atelectasis Right greater than left since 06/19/2021. Small right pleural effusion is suggestion. * Dialysis catheter placed (3) Sepsis: Code(s): A41.9 - Sepsis, unspecified organism Status: Acute Assessment and Plan: * THERE HAS BEEN NO A WORSENING OF PATIENT'S CONDITION OVERNIGHT * PROGNOSIS IS GUARDED * HAD DISCUSSION WITH SON AT BEDSIDE IS STILL WANTING HEMODIALYSIS * Infectious disease has seen the patient. 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 (4) Cholelithiasis: Code(s): K80.20 - Calculus of gallbladder without cholecystitis without obstruction Status: Acute Assessment and Plan: Continue to monitor the patient does not have any abdominal tenderness or knee complaints of upper quadrant pain. CT of the abdomen was read as a follow. 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 The differential diagnosis includes pseudocyst, intraductal papillary mucinous neoplasm (IPMN), mucinous cystic neoplasm (MCN), and the less common serous cystadenoma and neuroendocrine tumor. 2: Cholelithiasis. 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 abdominal ultrasound was read as distended gallbladder with gallstones. No gallbladder wall thickening or sonographic Lopez sign to suggest acute cholecystitis. The patient is undergoing a HIDA scan today. (5) NICHELLE (acute kidney injury): Code(s): N17.9 - Acute kidney failure, unspecified Status: Acute Assessment and Plan: * WORSENING PLAN FOR HEMODIALYSIS * BUN/Cr 167/7.50, Phos 10.8, K 5.2 * Continue to monitor * Patient has stage 4 chronic kidney disease. * renal ultrasound 8 mm left renal cyst. Otherwise normal kidneys without hydronephrosis. * Nephrology has been consulted. (6) Acute on chronic kidney failure: Code(s): N17.9 - Acute kidney failure, unspecified; N18.9 - Chronic kidney disease, unspecified Status: Acute Assessment and Plan: * See above * Plan for dialysis (7) Non-STEMI (non-ST elevated myocardial infarction): Code(s): I21.4 - Non-ST elevation (NSTEMI) myocardial infarction Status: Acute Assessment and Plan: * Stable * Continue to monitor * Cardiology is following. * it is uncertain if his related to plaque rupture or secondary to supply demand mismatch demand ischemia in the setting of bacteremia, anemia and underlying coronary artery disease. * history of CABG. * Atorvastatin continued, * isosorbide Currently on hold due to low blood pressure. * Coreg Continued.. * Continue conservative therapy resume Eliquis when okay with GI. (8) Hypertensive heart dis
--- NOTE | 2021-06-17 11:31 | PM.IMPN ---
Progress Note: A&P Assessment and Plan (1) Comfort measures only status: Code(s): Z51.5 - Encounter for palliative care Status: Acute Assessment and Plan: Comfort measures initiated on last shift hospice referral placed morphine IV p.r.n. lorazepam IV p.r.n. patient went need inpatient hospice family involved and conversation of next steps was had. Family conversation noted above (2) Hypoxia: Code(s): R09.02 - Hypoxemia Status: Acute Assessment and Plan: Try and keep O2SAT at 94% Not on oxygen at home remains on oxygen at 4 L per nasal cannula. Patient had a chest x-ray showed increased bilateral mid and lower lung infiltrates and/or atelectasis Right greater than left since 06/19/2021. Small right pleural effusion is suggestion. Dialysis catheter placed (3) Sepsis: Code(s): A41.9 - Sepsis, unspecified organism Status: Acute Assessment and Plan: THERE HAS BEEN NO A WORSENING OF PATIENT'S CONDITION OVERNIGHT PROGNOSIS IS GUARDED HAD DISCUSSION WITH SON AT BEDSIDE IS STILL WANTING HEMODIALYSIS Infectious disease has seen the patient. 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 (4) Cholelithiasis: Code(s): K80.20 - Calculus of gallbladder without cholecystitis without obstruction Status: Acute Assessment and Plan: Continue to monitor the patient does not have any abdominal tenderness or knee complaints of upper quadrant pain. CT of the abdomen was read as a follow. 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 The differential diagnosis includes pseudocyst, intraductal papillary mucinous neoplasm (IPMN), mucinous cystic neoplasm (MCN), and the less common serous cystadenoma and neuroendocrine tumor. 2: Cholelithiasis. 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 abdominal ultrasound was read as distended gallbladder with gallstones. No gallbladder wall thickening or sonographic Lopez sign to suggest acute cholecystitis. The patient is undergoing a HIDA scan today. (5) NICHELLE (acute kidney injury): Code(s): N17.9 - Acute kidney failure, unspecified Status: Acute Assessment and Plan: WORSENING PLAN FOR HEMODIALYSIS BUN/Cr 167/7.50, Phos 10.8, K 5.2 Continue to monitor Patient has stage 4 chronic kidney disease. renal ultrasound 8 mm left renal cyst. Otherwise normal kidneys without hydronephrosis. Nephrology has been consulted. (6) Acute on chronic kidney failure: Code(s): N17.9 - Acute kidney failure, unspecified; N18.9 - Chronic kidney disease, unspecified Status: Acute Assessment and Plan: See above Plan for dialysis (7) Non-STEMI (non-ST elevated myocardial infarction): Code(s): I21.4 - Non-ST elevation (NSTEMI) myocardial infarction Status: Acute Assessment and Plan: Stable Continue to monitor Cardiology is following. it is uncertain if his related to plaque rupture or secondary to supply demand mismatch demand ischemia in the setting of bacteremia, anemia and underlying coronary artery disease. history of CABG. Atorvastatin continued, isosorbide Currently on hold due to low blood pressure. Coreg Continued.. Continue conservative therapy resume Eliquis when okay with GI. (8) Hypertensive heart disease with CHF: Code(s): I11.0 - Hypertensive heart disease with heart failure Status: Acute Assessment and Plan: Continue to monitor Norvasc is currently on hold. Coreg has been continued. Isosorbide. Patient's blood pressure still in the soft side please continue to monitor. (9) Mixed hyperlipidemia due to type 2 diabetes mellitus: Code(s): E11.69 - Type 2 diabetes mellitus with other specified complication; E78.2 - Mixed hyperlipidemia
--- NOTE | 2021-06-17 11:40 | WPDANESPN ---
Anes - Prog Note Post-Op Date/Time: 06/17/21 11:40 Cardiovascular status: normal Respiratory status: normal Airway patency: baseline Mental status: baseline Post-Op hydration status: normal Vital Signs: Last Vital Signs Temp 36.8 C 06/17/21 06:49 Pulse 86 06/17/21 06:49 Resp 16 06/17/21 06:49 BP 95/35 L 06/17/21 06:49 Pulse Ox 99 06/17/21 10:21 Pain Score (VAS): 0 I/O: Intake & Output 06/16/21 06/17/21 06/17/21 23:59 07:59 15:59 Intake Total 200 200 Output Total 450 50 Balance -250 150 Laboratory Tests 06/17/21 06:15 06/17/21 06:15 06/16/21 06/16/21 06/16/21 11:16 12:34 15:23 WBC RBC Hgb Hct MCV MCH MCHC RDW Plt Count MPV Sodium Potassium Chloride Carbon Dioxide Anion Gap BUN Creatinine Estim Creat Clear Calc Estimated GFR Glucose POC Capillary Glucose 153 H 169 H Calcium Phosphorus Magnesium Total Bilirubin AST ALT Alkaline Phosphatase Total Protein Albumin Blood Type A Positive Antibody Screen Negative 06/16/21 06/17/21 06/17/21 21:29 06:15 06:15 WBC 12.2 H RBC 2.49 L Hgb 7.5 L Hct 24.1 L MCV 96.8 MCH 30.1 MCHC 31.1 L RDW 13.2 Plt Count 103 L MPV 10.4 Sodium 137 Potassium 4.6 Chloride 106 Carbon Dioxide 20 L Anion Gap 11 BUN 102 H D Creatinine 5.40 H Estim Creat Clear Calc 9 Estimated GFR 10 L Glucose 106 POC Capillary Glucose 134 H Calcium 7.5 L Phosphorus 8.7 H Magnesium 2.0 Total Bilirubin 0.5 AST 17 ALT 31 Alkaline Phosphatase 47 Total Protein 5.0 L Albumin 2.7 L Blood Type Antibody Screen Post-procedural complaints: none Patient Feedback: Patient satisfied with anesthetic care.
[2021-06-17] MEDS: LORazepam INJ (*CRX) 2 MG/ML VIAL 1 MG IV PUSH ×2 (12:24→17:12)
[2021-06-17 12:57] VITALS: O2SAT 99
[2021-06-17 14:00] VITALS: BP 103/37; PULSE 86; RESP 20; TEMP 36.8; O2SAT 97
--- NOTE | 2021-06-17 18:57 | PC.NURSE ---
patient admitted to [facility] at 1650. patient at 1720. family at bedside.
--- NOTE | 2021-06-18 06:33 | PM.DDS ---
Discharge Sum: Prov Provider Primary care physician: Salvador Murray DO Admitting provider: Peri Lee MD Consults: 06/10/21 Consult to Physician Routine Comment: CALLED EXCHANGE WITH CONSULT INFORMATION Consulting Provider: Chris Merritt call center director/MD group to consult: General surgery Reason for consultation: ? ischemic colitis Has provider been notified: Yes Consult to Physician Routine Comment: CALLED DR. RUSSELL WITH CONSULT Consulting Provider: Gildardo Russell call center director/MD group to consult: [facility] Reason for consultation: Elevated troponin, CAD Has provider been notified: Yes 06/11/21 09:41 Consult to Physician Routine Comment: Consulting Provider: Kota Tian Reason for consultation: blood in stool Has provider been notified: Yes 06/11/21 17:55 Consult to Physician Routine Comment: Consulting Provider: Dagoberto Kwon Reason for consultation: Pasteurella multocida bacteremia Has provider been notified: No 06/12/21 Consult to Physician Routine Comment: Consulting Provider: Adolfo Colon call center director/MD group to consult: Nephrology/[facility] Reason for consultation: NICHELLE Has provider been notified: Yes 06/15/21 Consult to Physician Routine Comment: EXCHANGE NOTIFIED OF CONSULT Consulting Provider: Chris Merritt Reason for consultation: placement of temporary dialysis catheter tomorrow (06/15/21) AM Has provider been notified: Yes 06/17/21 Care Coordination Consult Routine Comment: Reason for Consult:: Hospice Referral Discharge Sum: Diag Contributing Factors (1) Comfort measures only status: (2) Hypoxia: (3) Sepsis: (4) Cholelithiasis: (5) NICHELLE (acute kidney injury): (6) Acute on chronic kidney failure: (7) Non-STEMI (non-ST elevated myocardial infarction): (8) Hypertensive heart disease with CHF: (9) Mixed hyperlipidemia due to type 2 diabetes mellitus: (10) Paroxysmal atrial flutter: (11) (HFpEF) heart failure with preserved ejection fraction: (12) Chronic anticoagulation: (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 Patient was noted to have ischemic bowel and cholecystitis. Patient was not a candidate for surgery due to multiple comorbidities. Progression time because the patient become fluid overloaded as the kidneys were in failure. Patient was taken to the or for immediate dialysis catheter and had emergent dialysis on 06/16/2021. On 06/15/2021 Patient was noted to have a decline in was minimally responsive. On 06/16/2021 after dialysis patient was noted to still be very fluid overloaded with an abnormal breathing pattern even after dialysis. Family was talked to about comfort measures in which all of them agreed. Patient was also placed on hospice on 06/17/21 at 1650 unfortunately unable to be admitted to hospice at that time since patient had at 5:20 p.m. Patient was a DNR and was also explained to the family multiple times at this patient was in multiorgan failure is with no treatment to make the outcome any different. Additional Data Confirmation of as documented by pronouncing clinician: no pulse Family: at bedside Attending/PCP notified?: Yes Attending physician: Tanesha Graham PA-C Was code activated?: No Autopsy requested?: No forensic computer examiner notified?: Yes Organ bank notified?: Yes Advance directives: Yes Hospice patient?: Yes (as of 1650 on 06/17/21)
== END 2021-06-17 16:49 | disposition expired | DRG 867 ==
LOC: ANHED 19:18 → ANHIMU 06-10 00:30 → ANH3MEDSUR 06-19 13:52 → ANHIMU 06-19 13:52
PROVIDERS: Emergency Medicine; Internal Medicine; Internal Medicine Cardiovascular Disease; Internal Medicine Nephrology; Nurse Practitioner; Physician Assistant; Surgery; Admitting Provider Internal Medicine; Emergency Provider Emergency Medicine; PCP Internal Medicine; Visit Provider Nurse Practitioner
PROC: 0JH63XZ Insertion of Tunneled Vascular Access Device into Chest Subcutaneous Tissue and Fascia, Percutaneous Approach (ICD-10-PCS; CPT 36908; principal; 2021-06-16 14:30)
DX: A28.0 Pasteurellosis (principal); I21.4 Non-ST elevation (NSTEMI) myocardial infarction; N17.9 Acute kidney failure, unspecified; I13.0 Hypertensive heart and chronic kidney disease with heart failure and stage 1 through stage 4 chronic kidney disease, or unspecified chronic kidney disease; N18.4 Chronic kidney disease, stage 4 (severe); I48.92 Unspecified atrial flutter; I50.32 Chronic diastolic (congestive) heart failure; K62.5 Hemorrhage of anus and rectum; I38 Endocarditis, valve unspecified; K55.9 Vascular disorder of intestine, unspecified; I25.10 Atherosclerotic heart disease of native coronary artery without angina pectoris; I50.9 Heart failure, unspecified; E11.22 Type 2 diabetes mellitus with diabetic chronic kidney disease; E11.59 Type 2 diabetes mellitus with other circulatory complications; I15.2 Hypertension secondary to endocrine disorders; Z20.822 Contact with and (suspected) exposure to COVID-19; Z51.5 Encounter for palliative care; Z66 Do not resuscitate; E11.69 Type 2 diabetes mellitus with other specified complication; E78.2 Mixed hyperlipidemia; R09.02 Hypoxemia; R77.8 Other specified abnormalities of plasma proteins; K80.20 Calculus of gallbladder without cholecystitis without obstruction; E86.0 Dehydration; D64.9 Anemia, unspecified; R93.89 Abnormal findings on diagnostic imaging of other specified body structures; H40.9 Unspecified glaucoma; Z79.01 Long term (current) use of anticoagulants; Z79.4 Long term (current) use of insulin; Z79.899 Other long term (current) drug therapy; Z86.73 Personal history of transient ischemic attack (TIA), and cerebral infarction without residual deficits; Z87.891 Personal history of nicotine dependence; Z88.2 Allergy status to sulfonamides; Z95.1 Presence of aortocoronary bypass graft
CPT/HCPCS: 36415; 36600; 71045; 74176; 76705; 76775; 77001; 78227; 80048; 80053; 80074; 81001; 81050; 82274; 82436; 82570; 82607; 82728; 82746; 82805; 82948; 83036; 83540; 83550; 83605; 83615; 83690; 83735; 83880; 84100; 84156; 84300; 84484; 85014; 85018; 85025; 85027; 85055; 85610; 85730; 85999; 86706; 86850; 86900; 86901; 87040; 87045; 87046; 87077; 87185; 87324; 87427; 87804; 93005; 93306; 94640; 96361; 96365; 96367; 96375; 97110; 97162; 97165; 97530; 99285; A9270; A9537; C1750; C9113; C9803; G0257; G0378; J0131; J0690; J1160; J1644; J1815; J1940; J2060; J2270; J2370; J2543; J2805; J2930; J7030; J7040; P9047; Q5106; U0003; U0005

== ENCOUNTER 2021-06-17 16:50 | HOS | payer OTHER, SELFPAY ==
--- NOTE | 2021-06-18 06:40 | DS_ITS ---
This report was recreated on September 27, 2021 on [id number]. Original report was signed by Igor Costa APN on 06/18/2021 at 0640. Discharge Sum: Prov Provider Primary care physician: Salvador Murray DO Admitting provider: Peri Lee MD Consults: 06/10/21 Consult to Physician Routine Comment: CALLED EXCHANGE WITH CONSULT INFORMATION Consulting Provider: Chris Merritt records management specialist/MD group to consult: General surgery Reason for consultation: ? ischemic colitis Has provider been notified: Yes Consult to Physician Routine Comment: CALLED DR. RUSSELL WITH CONSULT Consulting Provider: Gildardo Russell records management specialist/MD group to consult: [facility] Reason for consultation: Elevated troponin, CAD Has provider been notified: Yes 06/11/21 09:41 Consult to Physician Routine Comment: Consulting Provider: Kota Tian Reason for consultation: blood in stool Has provider been notified: Yes 06/11/21 17:55 Consult to Physician Routine Comment: Consulting Provider: Dagoberto Kwon Reason for consultation: Pasteurella multocida bacteremia Has provider been notified: No 06/12/21 Consult to Physician Routine Comment: Consulting Provider: Adolfo Colon records management specialist/MD group to consult: Nephrology/[facility] Reason for consultation: NICHELLE Has provider been notified: Yes 06/15/21 Consult to Physician Routine Comment: EXCHANGE NOTIFIED OF CONSULT Consulting Provider: Chris Merritt Reason for consultation: placement of temporary dialysis catheter tomorrow (06/15/21) AM Has provider been notified: Yes 06/17/21 Care Coordination Consult Routine Comment: Reason for Consult:: Hospice Referral Discharge Sum: Diag Contributing Factors (1) Comfort measures only status: (2) Hypoxia: (3) Sepsis: (4) Cholelithiasis: (5) NICHELLE (acute kidney injury): (6) Acute on chronic kidney failure: (7) Non-STEMI (non-ST elevated myocardial infarction): (8) Hypertensive heart disease with CHF: (9) Mixed hyperlipidemia due to type 2 diabetes mellitus: (10) Paroxysmal atrial flutter: (11) (HFpEF) heart failure with preserved ejection fraction: (12) Chronic anticoagulation: (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 Patient was noted to have ischemic bowel and cholecystitis. Patient was not a candidate for surgery due to multiple comorbidities. Progression time because the patient become fluid overloaded as the kidneys were in failure. Patient was taken to the or for immediate dialysis catheter and had emergent dialysis on 06/16/2021. On 06/15/2021 Patient was noted to have a decline in was minimally responsive. On 06/16/2021 after dialysis patient was noted to still be very fluid overloaded with an abnormal breathing pattern even after dialysis. Family was talked to about comfort measures in which all of them agreed. Patient was also placed on hospice on 06/17/21 at 1650 unfortunately unable to be admitted to hospice at that time since patient had at 5:20 p.m. Patient was a DNR and was also explained to the family multiple times at this patient was in multiorgan failure is with no treatment to make the outcome a
== END 2021-06-17 17:20 | disposition expired | DRG 951 ==
LOC: ANHICU 10-18 13:19
PROVIDERS: Admitting Provider Internal Medicine; PCP Internal Medicine; Visit Provider Internal Medicine
DX: Z51.5 Encounter for palliative care (principal); A41.9 Sepsis, unspecified organism; I21.4 Non-ST elevation (NSTEMI) myocardial infarction; N17.9 Acute kidney failure, unspecified; I48.92 Unspecified atrial flutter; I13.0 Hypertensive heart and chronic kidney disease with heart failure and stage 1 through stage 4 chronic kidney disease, or unspecified chronic kidney disease; E11.22 Type 2 diabetes mellitus with diabetic chronic kidney disease; N18.9 Chronic kidney disease, unspecified; I50.9 Heart failure, unspecified; K80.20 Calculus of gallbladder without cholecystitis without obstruction; I25.10 Atherosclerotic heart disease of native coronary artery without angina pectoris; R09.02 Hypoxemia; E78.2 Mixed hyperlipidemia; D64.9 Anemia, unspecified; Z79.01 Long term (current) use of anticoagulants; Z86.73 Personal history of transient ischemic attack (TIA), and cerebral infarction without residual deficits
CPT/HCPCS: 99199